=== PATIENT | female | born 1960 | race Caucasian/White ===

== ENCOUNTER 2021-04-15 08:20 | Inpatient (IN) ==
[2021-04-15] MEDS ORDERED: Ipratropium/Albuterol Neb 3 ML IH ONE (09:06)
[2021-04-15] MEDS ORDERED: 0.9 % Sodium Chloride 1,000 ML IVC ONE (10:00)
[2021-04-15 10:07] LABS: Hematocrit 29.3 % (35.3-44.9); Hemoglobin 9.3 g/dL (11.5-15.4); Mean Corpuscular HGB Conc 31.7 g/dL (31.6-35.5); Mean Corpuscular Volume 97.7 fL (83.0-100.0); Mean Platelet Volume 10.8 fL (9.4-12.4); Platelet Count 231 K/mcL (140-400); White Blood Count 11.2 K/mcL (4.3-11.1)
[2021-04-15 10:15] LABS: Influenza A PCR Negative (Negative); Influenza B PCR Negative (Negative); Resp. Syncytial Virus PCR Negative (Negative)
[2021-04-15 10:27] LABS: BUN/Creatinine Ratio 25 (6-26); Blood Urea Nitrogen 13 mg/dL (8-23); Carbon Dioxide 35 mEq/L (23-29); Chloride 99 mEq/L (98-107); Glucose 164 mg/dL (70-105); Osmolality,Calculated 294 (280-300); Potassium 4.2 mEq/L (3.5-5.1); Sodium 140 mEq/L (136-145); eGFR For African Americans > 60 (> 60); eGFR For Non-African Americans > 60 (> 60)
[2021-04-15 10:28] LABS: Troponin I < 0.03 ng/mL (< 0.04)
[2021-04-15] MEDS ORDERED: cefTRIAXone 1,000 MG in Water for inj. (sterile) 10 ML IVP ONE (10:47)
[2021-04-15] MEDS ORDERED: Azithromycin 500 MG in 0.9 % Sodium Chloride 250 ML IVPB ONE (10:47)
[2021-04-15 10:55] LABS: Lymphocytes # 2.2 K/mcL (0.6-4.6); Monocytes # 1.5 K/mcL (0.0-1.3); Neutrophils # 7.5 K/mcL (1.6-8.9); Platelet Estimate Normal (Normal)
[2021-04-15] MEDS ORDERED: Naloxone 0.4 MG/ML INJ IVP PRN (11:03)
[2021-04-15] MEDS ORDERED: Ondansetron 4 MG/2 ML VIAL IVP PRN (11:03)
[2021-04-15] MEDS ORDERED: *HR* Metoprolol 5 MG/5 ML VIAL IVP PRN (11:05)
[2021-04-15 11:06] LABS: SARS-CoV-2 by PCR (In House) Negative (Negative)
[2021-04-15] MEDS ORDERED: D5% in Water 1,000 ML IVC PRN (13:24)
[2021-04-15] MEDS ORDERED: *HR* Dextrose 50 % in Water (Syg) 50 ML SYRINGE IVP PRN (13:24)
[2021-04-15] MEDS ORDERED: Dextrose Gel 15 GM/37.5 ML TUBE PO PRN ×2 (13:24)
[2021-04-15 17:07] LABS: Estimated Average Glucose 192 mg/dl; Hemoglobin A1C 8.3 %
[2021-04-15] MEDS: Insulin LISPRO 300 UNITS/3 ML VIAL SUBQ SCH (18:29)
[2021-04-15] MEDS: predniSONE 20 MG TABLET PO SCH (18:29)
[2021-04-15] MEDS: Levalbuterol Neb 1.25 MG/3 ML IH SCH ×2 (19:52→20:24)
[2021-04-15] MEDS: Ipratropium Neb 0.5 MG NEBULIZER IH SCH ×2 (19:52→20:24)
[2021-04-16 01:55] LABS: Basophils # 0.1 K/mcL (0.0-0.2); Basophils % 0.6 %; Eosinophils % 0.2 %; Hematocrit 30.1 % (35.3-44.9); Hemoglobin 9.3 g/dL (11.5-15.4); Immature Granulocytes % 3.9 % (0-4); Lymphocytes # 1.5 K/mcL (0.6-4.6); Lymphocytes % 13.8 %; Mean Corpuscular HGB Conc 30.9 g/dL (31.6-35.5); Mean Corpuscular Hemoglobin 30.7 pg (28.0-33.3); Mean Corpuscular Volume 99.3 fL (83.0-100.0); Mean Platelet Volume 10.9 fL (9.4-12.4); Monocytes # 1.1 K/mcL (0.0-1.3); Monocytes % 9.8 %; Neutrophils # 7.8 K/mcL (1.6-8.9); Nucleated Red Blood Cells 0.2 /100 WBC (0); Platelet Count 248 K/mcL (140-400); Red Blood Count 3.03 M/mcL (3.82-4.97); Segmented Neutrophils % 71.7 %; White Blood Count 10.9 K/mcL (4.3-11.1)
[2021-04-16 02:15] LABS: BUN/Creatinine Ratio 22 (6-26); Blood Urea Nitrogen 14 mg/dL (8-23); Calcium 9.1 mg/dL (8.6-10.3); Carbon Dioxide 28 mEq/L (23-29); Chloride 96 mEq/L (98-107); Glucose 284 mg/dL (70-105); Osmolality,Calculated 291 (280-300); Potassium 4.4 mEq/L (3.5-5.1); Sodium 135 mEq/L (136-145); eGFR For African Americans > 60 (> 60); eGFR For Non-African Americans > 60 (> 60)
[2021-04-16] MEDS: Ipratropium Neb 0.5 MG NEBULIZER IH SCH ×4 (03:46→20:17)
[2021-04-16] MEDS: Levalbuterol Neb 1.25 MG/3 ML IH SCH ×4 (03:46→20:17)
[2021-04-16] MEDS ORDERED: Menthol 1 EACH LOZENGE PO PRN (04:58)
[2021-04-16] MEDS: *HR* Enoxaparin 40 MG/0.4 ML SYRINGE SQ SCH (05:27)
[2021-04-16] MEDS ORDERED: cefTRIAXone 1,000 MG in 0.9 % Sodium Chloride Mini Bag 100 ML IVP SCH (09:00)
[2021-04-16] MEDS: predniSONE 20 MG TABLET PO SCH (09:00)
[2021-04-16] MEDS: levoFLOXacin 750 MG/150 ML 750 MG/150 ML BAG IVPB SCH (09:00)
[2021-04-16] MEDS: Insulin LISPRO 300 UNITS/3 ML VIAL SUBQ SCH ×3 (09:04→17:12)
[2021-04-16] MEDS ORDERED: Azithromycin 500 MG in 0.9 % Sodium Chloride 250 ML IVPB SCH (10:00)
[2021-04-16] MEDS ORDERED: Acetaminophen 325 MG TABLET PO PRN (13:25)
[2021-04-16] MEDS ORDERED: Ipratropium/Albuterol Neb 3 ML IH SCH (17:00)
[2021-04-16] MEDS: Insulin DETEMIR 100 UNIT/ML X5UNITS SUBQ SCH (20:03)
[2021-04-16] MEDS: Divalproex (24 HR) 500 MG TABLET PO SCH (20:03)
[2021-04-16] MEDS: cloZAPine 100 MG TABLET PO SCH (20:03)
[2021-04-17] MEDS: Levalbuterol Neb 1.25 MG/3 ML IH SCH ×4 (03:45→20:04)
[2021-04-17] MEDS: Ipratropium Neb 0.5 MG NEBULIZER IH SCH ×4 (03:45→20:04)
[2021-04-17] MEDS: *HR* Enoxaparin 40 MG/0.4 ML SYRINGE SQ SCH (06:28)
[2021-04-17 06:46] LABS: Hematocrit 29.7 % (35.3-44.9); Hemoglobin 9.2 g/dL (11.5-15.4); Mean Corpuscular Hemoglobin 30.6 pg (28.0-33.3); Mean Corpuscular Volume 98.7 fL (83.0-100.0); Mean Platelet Volume 10.7 fL (9.4-12.4); Platelet Count 249 K/mcL (140-400); Red Blood Count 3.01 M/mcL (3.82-4.97); Red Cell Distribution Width 12.8 % (11.5-14.5); White Blood Count 12.1 K/mcL (4.3-11.1)
[2021-04-17 07:12] LABS: BUN/Creatinine Ratio 19 (6-26); Blood Urea Nitrogen 13 mg/dL (8-23); Calcium 9.3 mg/dL (8.6-10.3); Carbon Dioxide 32 mEq/L (23-29); Chloride 96 mEq/L (98-107); Glucose 209 mg/dL (70-105); Magnesium 1.9 mg/dL (1.6-2.6); Osmolality,Calculated 286 (280-300); Phosphorous 2.7 mg/dL (2.7-4.5); Potassium 4.4 mEq/L (3.5-5.1); Sodium 135 mEq/L (136-145); eGFR For African Americans > 60 (> 60); eGFR For Non-African Americans > 60 (> 60)
[2021-04-17 08:15] LABS: Anisocytosis 1+ (Not Present); Lymphocytes # 3.9 K/mcL (0.6-4.6); Monocytes # 1.9 K/mcL (0.0-1.3); Neutrophils # 6.3 K/mcL (1.6-8.9); Platelet Estimate Normal (Normal)
[2021-04-17] MEDS: Insulin LISPRO 300 UNITS/3 ML VIAL SUBQ SCH ×3 (08:33→17:14)
[2021-04-17] MEDS: Insulin DETEMIR 100 UNIT/ML X5UNITS SUBQ SCH ×2 (08:33→22:31)
[2021-04-17] MEDS: Loratadine 10 MG TABLET PO SCH (08:37)
[2021-04-17] MEDS: Furosemide 20 MG TABLET PO SCH (08:37)
[2021-04-17] MEDS: predniSONE 20 MG TABLET PO SCH (08:37)
[2021-04-17] MEDS: Cholecalciferol (D-3) 1,000 UNIT (25MCG) TABLET PO SCH (08:37)
[2021-04-17] MEDS: Aspirin Enteric Coated 81 MG Tablet PO SCH (08:37)
[2021-04-17] MEDS: levoFLOXacin 750 MG/150 ML 750 MG/150 ML BAG IVPB SCH (08:37)
[2021-04-17] MEDS: Divalproex (24 HR) 500 MG TABLET PO SCH (22:31)
[2021-04-17] MEDS: cloZAPine 100 MG TABLET PO SCH (22:31)
[2021-04-18] MEDS: Levalbuterol Neb 1.25 MG/3 ML IH SCH ×4 (03:51→20:32)
[2021-04-18] MEDS: Ipratropium Neb 0.5 MG NEBULIZER IH SCH ×4 (03:51→20:32)
[2021-04-18] MEDS: *HR* Enoxaparin 40 MG/0.4 ML SYRINGE SQ SCH (05:39)
[2021-04-18] MEDS ORDERED: Furosemide 40 MG/4 ML VIAL IVP STA (07:50)
[2021-04-18 08:17] LABS: ABG Base Excess 9 mEq/L (-2 to 3); ABG HCO3 37 mEq/L (21-27); ABG Oxygen Saturation 90 % (95-98); ABG PCO2 69 mmHg (35-45); ABG PH 7.34 pH Units (7.32-7.45); ABG PO2 65 mmHg (85-104); ABG TCO2 39 mEq/L (20-26)
[2021-04-18] MEDS ORDERED: Isovue-370 500 ML BOTTLE IVP ONE (08:21)
[2021-04-18] MEDS: Aspirin Enteric Coated 81 MG Tablet PO SCH (09:09)
[2021-04-18] MEDS: predniSONE 20 MG TABLET PO SCH (09:09)
[2021-04-18] MEDS: Loratadine 10 MG TABLET PO SCH (09:09)
[2021-04-18] MEDS: Cholecalciferol (D-3) 1,000 UNIT (25MCG) TABLET PO SCH (09:09)
[2021-04-18] MEDS: Furosemide 20 MG TABLET PO SCH (09:10)
[2021-04-18] MEDS: Insulin DETEMIR 100 UNIT/ML X5UNITS SUBQ SCH ×2 (09:11→19:54)
[2021-04-18] MEDS: levoFLOXacin 750 MG/150 ML 750 MG/150 ML BAG IVPB SCH (09:13)
[2021-04-18] MEDS: Insulin LISPRO 300 UNITS/3 ML VIAL SUBQ SCH ×3 (09:17→16:49)
[2021-04-18] MEDS: Furosemide 20 MG/2 ML VIAL IVP SCH ×2 (09:32→19:52)
[2021-04-18] MEDS: MethylPREDNISolone 40 MG/ML VIAL IVP SCH (11:54)
[2021-04-18] MEDS: Divalproex (24 HR) 500 MG TABLET PO SCH (19:53)
[2021-04-18] MEDS: cloZAPine 100 MG TABLET PO SCH (19:53)
[2021-04-19 01:52] LABS: Hematocrit 30.7 % (35.3-44.9); Hemoglobin 9.7 g/dL (11.5-15.4); Mean Corpuscular HGB Conc 31.6 g/dL (31.6-35.5); Mean Corpuscular Hemoglobin 31.3 pg (28.0-33.3); Mean Platelet Volume 10.7 fL (9.4-12.4); Platelet Count 291 K/mcL (140-400); Red Cell Distribution Width 12.6 % (11.5-14.5); White Blood Count 15.7 K/mcL (4.3-11.1)
[2021-04-19 02:07] LABS: BUN/Creatinine Ratio 23 (6-26); Blood Urea Nitrogen 18 mg/dL (8-23); Calcium 9.4 mg/dL (8.6-10.3); Carbon Dioxide 37 mEq/L (23-29); Chloride 92 mEq/L (98-107); Glucose 326 mg/dL (70-105); Magnesium 1.9 mg/dL (1.6-2.6); Osmolality,Calculated 299 (280-300); Phosphorous 4.3 mg/dL (2.7-4.5); Potassium 4.2 mEq/L (3.5-5.1); Sodium 137 mEq/L (136-145); eGFR For African Americans > 60 (> 60); eGFR For Non-African Americans > 60 (> 60)
[2021-04-19 02:31] LABS: Anisocytosis 1+ (Not Present); Lymphocytes # 3.1 K/mcL (0.6-4.6); Monocytes # 1.6 K/mcL (0.0-1.3); Neutrophils # 10.7 K/mcL (1.6-8.9); Platelet Estimate Normal (Normal)
[2021-04-19] MEDS: Levalbuterol Neb 1.25 MG/3 ML IH SCH ×2 (04:02→07:57)
[2021-04-19] MEDS: Ipratropium Neb 0.5 MG NEBULIZER IH SCH ×2 (04:02→07:57)
[2021-04-19] MEDS: *HR* Enoxaparin 40 MG/0.4 ML SYRINGE SQ SCH (05:16)
[2021-04-19] MEDS: Cholecalciferol (D-3) 1,000 UNIT (25MCG) TABLET PO SCH (09:58)
[2021-04-19] MEDS: Furosemide 20 MG/2 ML VIAL IVP SCH ×2 (09:59→21:02)
[2021-04-19] MEDS: levoFLOXacin 750 MG/150 ML 750 MG/150 ML BAG IVPB SCH (09:59)
[2021-04-19] MEDS: Aspirin Enteric Coated 81 MG Tablet PO SCH (09:59)
[2021-04-19] MEDS: Loratadine 10 MG TABLET PO SCH (09:59)
[2021-04-19] MEDS: MethylPREDNISolone 40 MG/ML VIAL IVP SCH ×3 (10:00→21:03)
[2021-04-19] MEDS: Insulin DETEMIR 100 UNIT/ML X5UNITS SUBQ SCH ×2 (10:37→21:03)
[2021-04-19] MEDS: Insulin LISPRO 300 UNITS/3 ML VIAL SUBQ SCH ×4 (10:37→21:06)
[2021-04-19] MEDS: Acetylcysteine 10% 2 ML INHSOL IH SCH ×2 (11:19→20:06)
[2021-04-19] MEDS: Ipratropium/Albuterol Neb 3 ML IH SCH ×4 (11:19→23:52)
[2021-04-19] MEDS: Divalproex (24 HR) 500 MG TABLET PO SCH (21:04)
[2021-04-19] MEDS: cloZAPine 100 MG TABLET PO SCH (21:04)
[2021-04-20 03:39] LABS: Hematocrit 29.1 % (35.3-44.9); Hemoglobin 9.5 g/dL (11.5-15.4); Mean Corpuscular HGB Conc 32.6 g/dL (31.6-35.5); Mean Corpuscular Hemoglobin 31.8 pg (28.0-33.3); Mean Corpuscular Volume 97.3 fL (83.0-100.0); Mean Platelet Volume 10.8 fL (9.4-12.4); Platelet Count 259 K/mcL (140-400); Red Blood Count 2.99 M/mcL (3.82-4.97); Red Cell Distribution Width 12.5 % (11.5-14.5); White Blood Count 16.9 K/mcL (4.3-11.1)
[2021-04-20] MEDS: Ipratropium/Albuterol Neb 3 ML IH SCH ×6 (03:49→23:36)
[2021-04-20 03:57] LABS: BUN/Creatinine Ratio 26 (6-26); Blood Urea Nitrogen 20 mg/dL (8-23); Carbon Dioxide 38 mEq/L (23-29); Chloride 89 mEq/L (98-107); Glucose 379 mg/dL (70-105); Magnesium 1.8 mg/dL (1.6-2.6); Osmolality,Calculated 288 (280-300); Potassium 4.2 mEq/L (3.5-5.1); Sodium 130 mEq/L (136-145); eGFR For African Americans > 60 (> 60); eGFR For Non-African Americans > 60 (> 60)
[2021-04-20 04:28] LABS: Lymphocytes # 2.7 K/mcL (0.6-4.6); Neutrophils # 12.8 K/mcL (1.6-8.9); Platelet Estimate Normal (Normal)
[2021-04-20 04:29] LABS: Anisocytosis 1+ (Not Present)
[2021-04-20] MEDS: MethylPREDNISolone 40 MG/ML VIAL IVP SCH ×3 (05:11→22:10)
[2021-04-20] MEDS: *HR* Enoxaparin 40 MG/0.4 ML SYRINGE SQ SCH (05:12)
[2021-04-20] MEDS: Acetylcysteine 10% 2 ML INHSOL IH SCH ×3 (07:28→19:51)
[2021-04-20] MEDS: levoFLOXacin 750 MG/150 ML 750 MG/150 ML BAG IVPB SCH (09:13)
[2021-04-20] MEDS: Furosemide 20 MG/2 ML VIAL IVP SCH ×2 (09:14→22:07)
[2021-04-20] MEDS: Loratadine 10 MG TABLET PO SCH (09:14)
[2021-04-20] MEDS: Insulin DETEMIR 100 UNIT/ML X5UNITS SUBQ SCH ×3 (09:14→22:12)
[2021-04-20] MEDS: Insulin LISPRO 300 UNITS/3 ML VIAL SUBQ SCH ×4 (09:14→22:12)
[2021-04-20] MEDS: Cholecalciferol (D-3) 1,000 UNIT (25MCG) TABLET PO SCH (09:14)
[2021-04-20] MEDS: Aspirin Enteric Coated 81 MG Tablet PO SCH (09:14)
[2021-04-20] MEDS: Budesonide/Formoterol 160/4.5 1 PUFF INH IH SCH ×2 (10:54→19:51)
[2021-04-20] MEDS ORDERED: Insulin Human Regular 10 UNIT in 0.9 % Sodium Chloride 10 ML IV ONE (15:25)
[2021-04-20] MEDS: Divalproex (24 HR) 500 MG TABLET PO SCH (22:04)
[2021-04-20] MEDS: cloZAPine 100 MG TABLET PO SCH (22:05)
[2021-04-21] MEDS: Ipratropium/Albuterol Neb 3 ML IH SCH ×6 (03:35→23:32)
[2021-04-21] MEDS: MethylPREDNISolone 40 MG/ML VIAL IVP SCH ×3 (06:28→21:26)
[2021-04-21] MEDS: *HR* Enoxaparin 40 MG/0.4 ML SYRINGE SQ SCH (06:28)
[2021-04-21 06:46] LABS: Hematocrit 33.5 % (35.3-44.9); Hemoglobin 10.4 g/dL (11.5-15.4); Mean Corpuscular Volume 96.5 fL (83.0-100.0); Mean Platelet Volume 10.8 fL (9.4-12.4); Platelet Count 270 K/mcL (140-400); Red Blood Count 3.47 M/mcL (3.82-4.97); Red Cell Distribution Width 12.5 % (11.5-14.5); White Blood Count 17.3 K/mcL (4.3-11.1)
[2021-04-21 07:05] LABS: BUN/Creatinine Ratio 30 (6-26); Blood Urea Nitrogen 26 mg/dL (8-23); Calcium 9.3 mg/dL (8.6-10.3); Carbon Dioxide 39 mEq/L (23-29); Chloride 89 mEq/L (98-107); Glucose 337 mg/dL (70-105); Osmolality,Calculated 296 (280-300); Phosphorous 4.2 mg/dL (2.7-4.5); Potassium 4.5 mEq/L (3.5-5.1); Sodium 134 mEq/L (136-145); eGFR For African Americans > 60 (> 60); eGFR For Non-African Americans > 60 (> 60)
[2021-04-21] MEDS: Acetylcysteine 10% 2 ML INHSOL IH SCH (07:36)
[2021-04-21] MEDS: Budesonide/Formoterol 160/4.5 1 PUFF INH IH SCH ×2 (07:36→20:09)
[2021-04-21] MEDS: Loratadine 10 MG TABLET PO SCH (08:39)
[2021-04-21] MEDS: levoFLOXacin 750 MG/150 ML 750 MG/150 ML BAG IVPB SCH (08:39)
[2021-04-21] MEDS: Cholecalciferol (D-3) 1,000 UNIT (25MCG) TABLET PO SCH (08:39)
[2021-04-21] MEDS: Aspirin Enteric Coated 81 MG Tablet PO SCH (08:40)
[2021-04-21] MEDS: Insulin LISPRO 300 UNITS/3 ML VIAL SUBQ SCH ×4 (08:40→21:31)
[2021-04-21] MEDS: Insulin DETEMIR 100 UNIT/ML X5UNITS SUBQ SCH ×2 (08:40→21:30)
[2021-04-21] MEDS: Furosemide 20 MG/2 ML VIAL IVP SCH ×2 (08:40→21:26)
[2021-04-21 09:14] LABS: Lymphocytes # 3.1 K/mcL (0.6-4.6); Monocytes # 0.4 K/mcL (0.0-1.3); Neutrophils # 13.8 K/mcL (1.6-8.9)
[2021-04-21 09:17] LABS: Anisocytosis 1+ (Not Present); Platelet Estimate Normal (Normal); Reactive Lymphocytes Present (Not Present)
[2021-04-21] MEDS ORDERED: Insulin DETEMIR 100 UNIT/ML X5UNITS SUBQ ONE (12:30)
[2021-04-21] MEDS ORDERED: Insulin Human Regular 20 UNIT in 0.9 % Sodium Chloride 10 ML IV ONE (12:30)
[2021-04-21] MEDS ORDERED: Insulin Human Regular 10 UNIT in 0.9 % Sodium Chloride 10 ML IV ONE (15:21)
[2021-04-21 15:39] LABS: BUN/Creatinine Ratio 33 (6-26); Blood Urea Nitrogen 30 mg/dL (8-23); Calcium 9.6 mg/dL (8.6-10.3); Carbon Dioxide 35 mEq/L (23-29); Chloride 91 mEq/L (98-107); Glucose 420 mg/dL (70-105); Osmolality,Calculated 294 (280-300); Potassium 3.7 mEq/L (3.5-5.1); Sodium 130 mEq/L (136-145); eGFR For African Americans > 60 (> 60); eGFR For Non-African Americans > 60 (> 60)
[2021-04-21] MEDS: cloZAPine 100 MG TABLET PO SCH (21:22)
[2021-04-21] MEDS: Divalproex (24 HR) 500 MG TABLET PO SCH (21:25)
[2021-04-22 02:08] LABS: Basophils # 0.1 K/mcL (0.0-0.2); Basophils % 0.4 %; Hematocrit 31.4 % (35.3-44.9); Lymphocytes # 2.7 K/mcL (0.6-4.6); Mean Corpuscular HGB Conc 31.8 g/dL (31.6-35.5); Mean Corpuscular Hemoglobin 30.8 pg (28.0-33.3); Mean Corpuscular Volume 96.6 fL (83.0-100.0); Mean Platelet Volume 10.9 fL (9.4-12.4); Monocytes # 1.3 K/mcL (0.0-1.3); Monocytes % 6.9 %; Neutrophils # 13.2 K/mcL (1.6-8.9); Platelet Count 251 K/mcL (140-400); Red Blood Count 3.25 M/mcL (3.82-4.97); Red Cell Distribution Width 12.7 % (11.5-14.5); Segmented Neutrophils % 72.7 %; White Blood Count 18.1 K/mcL (4.3-11.1)
[2021-04-22 02:26] LABS: BUN/Creatinine Ratio 34 (6-26); Blood Urea Nitrogen 28 mg/dL (8-23); Calcium 9.1 mg/dL (8.6-10.3); Carbon Dioxide 35 mEq/L (23-29); Chloride 89 mEq/L (98-107); Glucose 315 mg/dL (70-105); Magnesium 1.9 mg/dL (1.6-2.6); Osmolality,Calculated 286 (280-300); Phosphorous 3.8 mg/dL (2.7-4.5); Sodium 129 mEq/L (136-145); eGFR For African Americans > 60 (> 60); eGFR For Non-African Americans > 60 (> 60)
[2021-04-22] MEDS: Ipratropium/Albuterol Neb 3 ML IH SCH ×6 (04:08→23:57)
[2021-04-22] MEDS: MethylPREDNISolone 40 MG/ML VIAL IVP SCH ×3 (05:30→20:51)
[2021-04-22] MEDS: *HR* Enoxaparin 40 MG/0.4 ML SYRINGE SQ SCH (05:33)
[2021-04-22] MEDS: Budesonide/Formoterol 160/4.5 1 PUFF INH IH SCH ×2 (07:30→20:09)
[2021-04-22] MEDS: levoFLOXacin 750 MG/150 ML 750 MG/150 ML BAG IVPB SCH (08:20)
[2021-04-22] MEDS: Cholecalciferol (D-3) 1,000 UNIT (25MCG) TABLET PO SCH (08:20)
[2021-04-22] MEDS: Aspirin Enteric Coated 81 MG Tablet PO SCH (08:20)
[2021-04-22] MEDS: Loratadine 10 MG TABLET PO SCH (08:20)
[2021-04-22] MEDS: Insulin LISPRO 300 UNITS/3 ML VIAL SUBQ SCH ×5 (08:21→20:53)
[2021-04-22] MEDS: Insulin DETEMIR 100 UNIT/ML X5UNITS SUBQ SCH ×2 (08:21→20:52)
[2021-04-22] MEDS: Furosemide 20 MG/2 ML VIAL IVP SCH ×2 (08:33→20:51)
[2021-04-22] MEDS ORDERED: Metoclopramide 10 MG/2 ML VIAL IVP STA (10:37)
[2021-04-22] MEDS: Divalproex (24 HR) 500 MG TABLET PO SCH (20:51)
[2021-04-22] MEDS: cloZAPine 100 MG TABLET PO SCH (20:52)
[2021-04-23 02:35] LABS: Basophils # 0.1 K/mcL (0.0-0.2); Basophils % 0.3 %; Hematocrit 33.2 % (35.3-44.9); Hemoglobin 10.4 g/dL (11.5-15.4); Immature Granulocytes % 4.4 % (0-4); Lymphocytes # 2.7 K/mcL (0.6-4.6); Lymphocytes % 15.5 %; Mean Corpuscular HGB Conc 31.3 g/dL (31.6-35.5); Mean Corpuscular Hemoglobin 30.3 pg (28.0-33.3); Mean Corpuscular Volume 96.8 fL (83.0-100.0); Monocytes # 1.2 K/mcL (0.0-1.3); Monocytes % 6.8 %; Neutrophils # 12.6 K/mcL (1.6-8.9); Platelet Count 238 K/mcL (140-400); Red Blood Count 3.43 M/mcL (3.82-4.97); Red Cell Distribution Width 12.7 % (11.5-14.5); White Blood Count 17.2 K/mcL (4.3-11.1)
[2021-04-23 03:11] LABS: BUN/Creatinine Ratio 33 (6-26); Blood Urea Nitrogen 25 mg/dL (8-23); Calcium 9.5 mg/dL (8.6-10.3); Carbon Dioxide 40 mEq/L (23-29); Chloride 90 mEq/L (98-107); Glucose 231 mg/dL (70-105); Magnesium 2.1 mg/dL (1.6-2.6); Osmolality,Calculated 290 (280-300); Phosphorous 3.5 mg/dL (2.7-4.5); Potassium 3.9 mEq/L (3.5-5.1); Sodium 134 mEq/L (136-145); eGFR For African Americans > 60 (> 60); eGFR For Non-African Americans > 60 (> 60)
[2021-04-23] MEDS: Ipratropium/Albuterol Neb 3 ML IH SCH ×5 (04:09→20:24)
[2021-04-23] MEDS: *HR* Enoxaparin 40 MG/0.4 ML SYRINGE SQ SCH (05:18)
[2021-04-23] MEDS: MethylPREDNISolone 40 MG/ML VIAL IVP SCH (05:18)
[2021-04-23] MEDS: Budesonide/Formoterol 160/4.5 1 PUFF INH IH SCH ×2 (07:33→20:24)
[2021-04-23] MEDS: Furosemide 20 MG/2 ML VIAL IVP SCH (08:22)
[2021-04-23] MEDS: Aspirin Enteric Coated 81 MG Tablet PO SCH (08:22)
[2021-04-23] MEDS: Cholecalciferol (D-3) 1,000 UNIT (25MCG) TABLET PO SCH (08:22)
[2021-04-23] MEDS: levoFLOXacin 750 MG/150 ML 750 MG/150 ML BAG IVPB SCH (08:22)
[2021-04-23] MEDS: Loratadine 10 MG TABLET PO SCH (08:22)
[2021-04-23] MEDS: Insulin LISPRO 300 UNITS/3 ML VIAL SUBQ SCH ×7 (08:38→21:47)
[2021-04-23] MEDS: Insulin DETEMIR 100 UNIT/ML X5UNITS SUBQ SCH ×2 (08:39→21:45)
[2021-04-23] MEDS: cloZAPine 100 MG TABLET PO SCH (21:45)
[2021-04-23] MEDS: Divalproex (24 HR) 500 MG TABLET PO SCH (21:46)
[2021-04-24] MEDS: Ipratropium/Albuterol Neb 3 ML IH SCH ×4 (00:20→11:26)
[2021-04-24] MEDS: *HR* Enoxaparin 40 MG/0.4 ML SYRINGE SQ SCH (04:32)
[2021-04-24 04:59] LABS: Basophils % 0.2 %; Eosinophils # 0.1 K/mcL (0.0-0.6); Eosinophils % 0.4 %; Hematocrit 30.1 % (35.3-44.9); Hemoglobin 9.8 g/dL (11.5-15.4); Immature Granulocytes % 2.5 % (0-4); Lymphocytes # 4.2 K/mcL (0.6-4.6); Lymphocytes % 30.4 %; Mean Corpuscular HGB Conc 32.6 g/dL (31.6-35.5); Mean Corpuscular Hemoglobin 31.4 pg (28.0-33.3); Mean Corpuscular Volume 96.5 fL (83.0-100.0); Mean Platelet Volume 11.1 fL (9.4-12.4); Monocytes # 1.4 K/mcL (0.0-1.3); Monocytes % 10.2 %; Neutrophils # 7.7 K/mcL (1.6-8.9); Platelet Count 192 K/mcL (140-400); Red Blood Count 3.12 M/mcL (3.82-4.97); Red Cell Distribution Width 12.8 % (11.5-14.5); Segmented Neutrophils % 56.3 %; White Blood Count 13.8 K/mcL (4.3-11.1)
[2021-04-24 05:13] LABS: BUN/Creatinine Ratio 40 (6-26); Blood Urea Nitrogen 28 mg/dL (8-23); Calcium 8.9 mg/dL (8.6-10.3); Carbon Dioxide 38 mEq/L (23-29); Chloride 86 mEq/L (98-107); Glucose 136 mg/dL (70-105); Magnesium 1.9 mg/dL (1.6-2.6); Osmolality,Calculated 276 (280-300); Phosphorous 3.4 mg/dL (2.7-4.5); Potassium 3.3 mEq/L (3.5-5.1); Sodium 129 mEq/L (136-145); eGFR For African Americans > 60 (> 60); eGFR For Non-African Americans > 60 (> 60)
[2021-04-24] MEDS: Budesonide/Formoterol 160/4.5 1 PUFF INH IH SCH (07:27)
[2021-04-24] MEDS: Insulin DETEMIR 100 UNIT/ML X5UNITS SUBQ SCH (08:03)
[2021-04-24] MEDS: Aspirin Enteric Coated 81 MG Tablet PO SCH (08:03)
[2021-04-24] MEDS: Insulin LISPRO 300 UNITS/3 ML VIAL SUBQ SCH ×4 (08:03→12:16)
[2021-04-24] MEDS: Loratadine 10 MG TABLET PO SCH (08:03)
[2021-04-24] MEDS ORDERED: Potassium Chloride Elixir 20 MEQ/15 ML UDC PO ONE (08:03)
[2021-04-24] MEDS: Cholecalciferol (D-3) 1,000 UNIT (25MCG) TABLET PO SCH (08:03)
[2021-04-24] MEDS ORDERED: predniSONE 20 MG TABLET PO SCH (09:00)
[2021-04-24] MEDS ORDERED: Furosemide 20 MG TABLET PO SCH (09:00)
[2021-04-24 14:27] VITALS: BP 138/87; PULSE 87; TEMP 98.1; O2SAT 93
== END 2021-04-24 14:52 | disposition home or self-care (01) | DRG 193 ==
LOC: 2ANU 08:20 → EMEROOARM 08:20 → 2ANU 17:40 → SUATTDRO 04-16 14:51
PROVIDERS: ADMIT Student in an Organized Health Care Education/Training Program; ATTEND Hospitalist

== ENCOUNTER 2021-05-30 23:44 | Inpatient (IN) ==
[2021-05-31 01:06] LABS: Alanine Aminotransferase 12 Units/L (7-52); Albumin 3.5 g/dL (3.5-5.7); Albumin/Globulin Ratio 1.4 (1.1-2.2); Alkaline Phosphatase 60 Units/L (34-104); Aspartate Amino Transferase 24 Units/L (13-39); BUN/Creatinine Ratio 30 (6-26); Bilirubin,Total 0.3 mg/dL (0.3-1.0); Blood Urea Nitrogen 19 mg/dL (8-23); Calcium 9.2 mg/dL (8.6-10.3); Carbon Dioxide 32 mEq/L (23-29); Chloride 99 mEq/L (98-107); Globulin 2.5 g/dL (2.4-3.5); Glucose 184 mg/dL (70-105); Osmolality,Calculated 295 (280-300); Potassium 4.7 mEq/L (3.5-5.1); Sodium 139 mEq/L (136-145); Troponin I < 0.03 ng/mL (< 0.04); eGFR For African Americans > 60 (> 60); eGFR For Non-African Americans > 60 (> 60)
[2021-05-31 01:23] LABS: VBG HCO3 35 mEq/L (21-27); VBG PCO2 68 mmHg (41-51); VBG PH 7.32 pH Units (7.32-7.42); VBG PO2 161 mmHg (25-50)
[2021-05-31 01:41] LABS: Basophils # 0.1 K/mcL (0.0-0.2); Basophils % 0.8 %; Eosinophils # 0.1 K/mcL (0.0-0.6); Eosinophils % 1.2 %; Hematocrit 32.6 % (35.3-44.9); Hemoglobin 9.9 g/dL (11.5-15.4); Lymphocytes # 2.9 K/mcL (0.6-4.6); Lymphocytes % 29.2 %; Mean Corpuscular HGB Conc 30.4 g/dL (31.6-35.5); Mean Corpuscular Hemoglobin 30.9 pg (28.0-33.3); Mean Corpuscular Volume 101.9 fL (83.0-100.0); Mean Platelet Volume 11.6 fL (9.4-12.4); Monocytes # 1.6 K/mcL (0.0-1.3); Monocytes % 16.1 %; Neutrophils # 5.1 K/mcL (1.6-8.9); Platelet Count 244 K/mcL (140-400); Red Cell Distribution Width 14.6 % (11.5-14.5); Segmented Neutrophils % 51.7 %; White Blood Count 9.8 K/mcL (4.3-11.1)
[2021-05-31] MEDS ORDERED: Isovue-370 500 ML BOTTLE IVP ONE (01:59)
[2021-05-31] MEDS ORDERED: Budesonide Neb 0.5 MG/2 ML IH ONE (03:25)
[2021-05-31 04:46] LABS: Influenza A PCR Negative (Negative); Influenza B PCR Negative (Negative); Resp. Syncytial Virus PCR Negative (Negative); SARS-CoV-2 by PCR (In House) Negative (Negative)
[2021-05-31] MEDS ORDERED: methylPREDNISolone 125 MG/2 ML VIAL IVP ONE (05:28)
[2021-05-31] MEDS ORDERED: Naloxone 0.4 MG/ML INJ IVP PRN (05:50)
[2021-05-31] MEDS ORDERED: *HR* Dextrose 50 % in Water (Syg) 50 ML SYRINGE IVP PRN (06:53)
[2021-05-31] MEDS ORDERED: Dextrose Gel 15 GM/37.5 ML TUBE PO PRN ×2 (06:53)
[2021-05-31] MEDS ORDERED: D5% in Water 1,000 ML IVC PRN (06:53)
[2021-05-31] MEDS ORDERED: Perflutren Lipid Microsphere 1.3 ML in 0.9 % Sodium Chloride 8.7 ML IVP PRN (07:19)
[2021-05-31] MEDS ORDERED: Furosemide 20 MG TABLET PO SCH (09:00)
[2021-05-31] MEDS: Insulin LISPRO 300 UNITS/3 ML VIAL SUBQ SCH ×3 (09:05→17:09)
[2021-05-31] MEDS: Furosemide 20 MG/2 ML VIAL IVP SCH ×2 (09:12→19:36)
[2021-05-31] MEDS: Ipratropium/Albuterol Neb 3 ML IH SCH ×3 (10:48→19:56)
[2021-05-31] MEDS: Budesonide/Formoterol 160/4.5 1 PUFF INH IH SCH ×2 (10:48→19:57)
[2021-05-31] MEDS: Divalproex (24 HR) 500 MG TABLET PO SCH (19:35)
[2021-05-31] MEDS: cloZAPine 100 MG TABLET PO SCH (19:36)
[2021-05-31] MEDS: MethylPREDNISolone 40 MG/ML VIAL IVP SCH (19:36)
[2021-05-31] MEDS: Melatonin 3 MG TABLET PO PRN (19:36)
[2021-05-31] MEDS ORDERED: Insulin LISPRO 300 UNITS/3 ML VIAL SUBQ SCH (21:00)
[2021-06-01 02:57] LABS: Basophils % 0.2 %; Hemoglobin 9.6 g/dL (11.5-15.4); Immature Granulocytes % 1.2 % (0-4); Lymphocytes # 1.5 K/mcL (0.6-4.6); Lymphocytes % 12.6 %; Mean Corpuscular Hemoglobin 30.1 pg (28.0-33.3); Mean Corpuscular Volume 100.3 fL (83.0-100.0); Mean Platelet Volume 11.7 fL (9.4-12.4); Monocytes # 0.5 K/mcL (0.0-1.3); Monocytes % 4.5 %; Neutrophils # 9.5 K/mcL (1.6-8.9); Platelet Count 258 K/mcL (140-400); Red Blood Count 3.19 M/mcL (3.82-4.97); Red Cell Distribution Width 14.5 % (11.5-14.5); Segmented Neutrophils % 81.5 %; White Blood Count 11.7 K/mcL (4.3-11.1)
[2021-06-01 03:15] LABS: BUN/Creatinine Ratio 26 (6-26); Blood Urea Nitrogen 17 mg/dL (8-23); Calcium 9.3 mg/dL (8.6-10.3); Carbon Dioxide 36 mEq/L (23-29); Chloride 96 mEq/L (98-107); Glucose 280 mg/dL (70-105); Osmolality,Calculated 298 (280-300); Potassium 4.1 mEq/L (3.5-5.1); Sodium 138 mEq/L (136-145); eGFR For African Americans > 60 (> 60); eGFR For Non-African Americans > 60 (> 60)
[2021-06-01] MEDS: Ipratropium/Albuterol Neb 3 ML IH SCH ×4 (03:58→20:09)
[2021-06-01] MEDS: MethylPREDNISolone 40 MG/ML VIAL IVP SCH ×3 (07:05→21:02)
[2021-06-01] MEDS: Insulin LISPRO 300 UNITS/3 ML VIAL SUBQ SCH ×4 (08:15→21:06)
[2021-06-01] MEDS: Aspirin Enteric Coated 81 MG Tablet PO SCH (08:17)
[2021-06-01] MEDS: Furosemide 40 MG/4 ML VIAL IVP SCH ×2 (08:19→21:02)
[2021-06-01] MEDS: Budesonide/Formoterol 160/4.5 1 PUFF INH IH SCH ×2 (09:53→20:11)
[2021-06-01] MEDS ORDERED: Insulin LISPRO 300 UNITS/3 ML VIAL SUBQ ONE (11:50)
[2021-06-01] MEDS: Insulin DETEMIR 100 UNIT/ML X5UNITS SUBQ SCH ×2 (12:47→21:05)
[2021-06-01 13:12] LABS: Bilirubin,Urine Negative (Negative); Blood,Urine Negative (Negative); Clarity,Urine Clear (Clear); Color,Urine Colorless (Yellow); Glucose,Urine (UA) >=1000 mg/dL (Normal); Ketones,Urine Negative (Negative); Leukocyte Esterase,Urine Negative (Negative); Nitrite,Urine Negative (Negative); PH,Urine 6.5 pH Units (5.0-8.0); Protein,Urine Negative (Neg-Trace); RBC,Urine 0-3 per hpf (0-3); Specific Gravity,Urine 1.013 (1.010-1.025); Urobilinogen,Urine Normal (Normal); WBC,Urine 0-3 per hpf (0-3)
[2021-06-01] MEDS ORDERED: Albuterol 2.5 MG/3 ML NEBULIZER ONE (17:06)
[2021-06-01] MEDS: GuaiFENesin Liq 200 MG/10 ML UDC PO PRN (18:00)
[2021-06-01] MEDS: Divalproex (24 HR) 500 MG TABLET PO SCH (21:01)
[2021-06-01] MEDS: cloZAPine 100 MG TABLET PO SCH (21:02)
[2021-06-02 02:53] LABS: Basophils % 0.1 %; Hematocrit 31.4 % (35.3-44.9); Hemoglobin 9.8 g/dL (11.5-15.4); Immature Granulocytes % 1.2 % (0-4); Lymphocytes % 13.9 %; Mean Corpuscular HGB Conc 31.2 g/dL (31.6-35.5); Mean Corpuscular Hemoglobin 30.6 pg (28.0-33.3); Mean Corpuscular Volume 98.1 fL (83.0-100.0); Mean Platelet Volume 11.5 fL (9.4-12.4); Monocytes # 0.9 K/mcL (0.0-1.3); Neutrophils # 11.5 K/mcL (1.6-8.9); Platelet Count 280 K/mcL (140-400); Red Cell Distribution Width 14.5 % (11.5-14.5); Segmented Neutrophils % 78.8 %; White Blood Count 14.6 K/mcL (4.3-11.1)
[2021-06-02 03:10] LABS: BUN/Creatinine Ratio 25 (6-26); Blood Urea Nitrogen 22 mg/dL (8-23); Carbon Dioxide 37 mEq/L (23-29); Chloride 91 mEq/L (98-107); Glucose 304 mg/dL (70-105); Osmolality,Calculated 295 (280-300); Potassium 3.9 mEq/L (3.5-5.1); Sodium 135 mEq/L (136-145); eGFR For African Americans > 60 (> 60); eGFR For Non-African Americans > 60 (> 60)
[2021-06-02] MEDS: Ipratropium/Albuterol Neb 3 ML IH SCH ×5 (03:57→20:57)
[2021-06-02] MEDS: MethylPREDNISolone 40 MG/ML VIAL IVP SCH ×3 (05:58→20:38)
[2021-06-02] MEDS: Budesonide/Formoterol 160/4.5 1 PUFF INH IH SCH ×3 (09:24→20:58)
[2021-06-02] MEDS: Aspirin Enteric Coated 81 MG Tablet PO SCH (09:39)
[2021-06-02] MEDS: Furosemide 40 MG/4 ML VIAL IVP SCH ×2 (09:39→20:38)
[2021-06-02] MEDS: Insulin DETEMIR 100 UNIT/ML X5UNITS SUBQ SCH ×2 (09:39→20:40)
[2021-06-02] MEDS: Insulin LISPRO 300 UNITS/3 ML VIAL SUBQ SCH ×4 (09:39→20:41)
[2021-06-02] MEDS: Azithromycin 500 MG in 0.9 % Sodium Chloride 250 ML IVPB SCH (13:54)
[2021-06-02] MEDS: cefTRIAXone 1,000 MG in 0.9 % Sodium Chloride 10 ML IVP SCH (13:55)
[2021-06-02] MEDS: Divalproex (24 HR) 500 MG TABLET PO SCH (20:38)
[2021-06-02] MEDS: cloZAPine 100 MG TABLET PO SCH (20:38)
[2021-06-03 01:44] LABS: Basophils % 0.2 %; Hematocrit 31.3 % (35.3-44.9); Hemoglobin 9.8 g/dL (11.5-15.4); Immature Granulocytes % 1.2 % (0-4); Lymphocytes % 12.2 %; Mean Corpuscular HGB Conc 31.3 g/dL (31.6-35.5); Mean Corpuscular Hemoglobin 30.6 pg (28.0-33.3); Mean Corpuscular Volume 97.8 fL (83.0-100.0); Mean Platelet Volume 11.7 fL (9.4-12.4); Monocytes # 1.6 K/mcL (0.0-1.3); Monocytes % 10.1 %; Neutrophils # 12.2 K/mcL (1.6-8.9); Platelet Count 281 K/mcL (140-400); Red Cell Distribution Width 14.5 % (11.5-14.5); Segmented Neutrophils % 76.3 %
[2021-06-03 02:09] LABS: BUN/Creatinine Ratio 40 (6-26); Blood Urea Nitrogen 34 mg/dL (8-23); Carbon Dioxide 32 mEq/L (23-29); Chloride 89 mEq/L (98-107); Glucose 280 mg/dL (70-105); Osmolality,Calculated 294 (280-300); Potassium 3.6 mEq/L (3.5-5.1); Sodium 133 mEq/L (136-145); eGFR For African Americans > 60 (> 60); eGFR For Non-African Americans > 60 (> 60)
[2021-06-03] MEDS: Ipratropium/Albuterol Neb 3 ML IH SCH ×4 (04:26→19:56)
[2021-06-03] MEDS: Budesonide/Formoterol 160/4.5 1 PUFF INH IH SCH ×2 (07:36→19:57)
[2021-06-03] MEDS: Loratadine 10 MG TABLET PO SCH (09:03)
[2021-06-03] MEDS: Cholecalciferol (D-3) 1,000 UNIT (25MCG) TABLET PO SCH (09:03)
[2021-06-03] MEDS: Aspirin Enteric Coated 81 MG Tablet PO SCH (09:03)
[2021-06-03] MEDS: Furosemide 40 MG/4 ML VIAL IVP SCH ×2 (09:03→20:50)
[2021-06-03] MEDS: MethylPREDNISolone 40 MG/ML VIAL IVP SCH ×2 (09:03→19:49)
[2021-06-03] MEDS: Insulin LISPRO 300 UNITS/3 ML VIAL SUBQ SCH ×4 (09:04→20:52)
[2021-06-03] MEDS: Insulin DETEMIR 100 UNIT/ML X5UNITS SUBQ SCH ×2 (09:15→20:51)
[2021-06-03] MEDS: Azithromycin 500 MG in 0.9 % Sodium Chloride 250 ML IVPB SCH (13:30)
[2021-06-03] MEDS: cefTRIAXone 1,000 MG in 0.9 % Sodium Chloride 10 ML IVP SCH (13:30)
[2021-06-03 15:04] LABS: ABG Base Excess 11 mEq/L (-2 to 3); ABG HCO3 38 mEq/L (21-27); ABG Oxygen Saturation 89 % (95-98); ABG PCO2 57 mmHg (35-45); ABG PH 7.43 pH Units (7.32-7.45); ABG PO2 56 mmHg (85-104); ABG TCO2 39 mEq/L (20-26)
[2021-06-03] MEDS: GuaiFENesin Liq 200 MG/10 ML UDC PO PRN (19:49)
[2021-06-03] MEDS: Divalproex (24 HR) 500 MG TABLET PO SCH (20:51)
[2021-06-03] MEDS: cloZAPine 100 MG TABLET PO SCH (20:51)
[2021-06-04] MEDS: Ipratropium/Albuterol Neb 3 ML IH SCH ×4 (03:57→19:53)
[2021-06-04 06:09] LABS: BUN/Creatinine Ratio 49 (6-26); Blood Urea Nitrogen 34 mg/dL (8-23); Calcium 9.1 mg/dL (8.6-10.3); Carbon Dioxide 37 mEq/L (23-29); Chloride 90 mEq/L (98-107); Glucose 241 mg/dL (70-105); Osmolality,Calculated 300 (280-300); Potassium 4.1 mEq/L (3.5-5.1); Sodium 137 mEq/L (136-145); eGFR For African Americans > 60 (> 60); eGFR For Non-African Americans > 60 (> 60)
[2021-06-04 07:12] LABS: Basophils % 0.1 %; Hematocrit 33.1 % (35.3-44.9); Hemoglobin 10.1 g/dL (11.5-15.4); Immature Granulocytes % 1.2 % (0-4); Lymphocytes # 2.4 K/mcL (0.6-4.6); Lymphocytes % 17.8 %; Mean Corpuscular HGB Conc 30.5 g/dL (31.6-35.5); Mean Corpuscular Hemoglobin 30.3 pg (28.0-33.3); Mean Corpuscular Volume 99.4 fL (83.0-100.0); Mean Platelet Volume 11.5 fL (9.4-12.4); Monocytes # 1.2 K/mcL (0.0-1.3); Monocytes % 8.7 %; Neutrophils # 9.8 K/mcL (1.6-8.9); Platelet Count 245 K/mcL (140-400); Red Blood Count 3.33 M/mcL (3.82-4.97); Red Cell Distribution Width 14.2 % (11.5-14.5); Segmented Neutrophils % 72.2 %; White Blood Count 13.5 K/mcL (4.3-11.1)
[2021-06-04] MEDS: MethylPREDNISolone 40 MG/ML VIAL IVP SCH ×2 (07:59→19:50)
[2021-06-04] MEDS: Insulin LISPRO 300 UNITS/3 ML VIAL SUBQ SCH ×4 (08:01→20:42)
[2021-06-04] MEDS: Cholecalciferol (D-3) 1,000 UNIT (25MCG) TABLET PO SCH (10:20)
[2021-06-04] MEDS: Furosemide 40 MG/4 ML VIAL IVP SCH ×2 (10:21→19:55)
[2021-06-04] MEDS: Loratadine 10 MG TABLET PO SCH (10:21)
[2021-06-04] MEDS: Insulin DETEMIR 100 UNIT/ML X5UNITS SUBQ SCH ×2 (10:22→20:43)
[2021-06-04] MEDS: Aspirin Enteric Coated 81 MG Tablet PO SCH (10:23)
[2021-06-04] MEDS: Budesonide/Formoterol 160/4.5 1 PUFF INH IH SCH ×2 (11:16→19:53)
[2021-06-04] MEDS: cefTRIAXone 1,000 MG in 0.9 % Sodium Chloride 10 ML IVP SCH (12:48)
[2021-06-04] MEDS: Azithromycin 500 MG in 0.9 % Sodium Chloride 250 ML IVPB SCH (12:49)
[2021-06-04] MEDS ORDERED: Furosemide 20 MG/2 ML VIAL IVP ONE (14:00)
[2021-06-04] MEDS: cloZAPine 100 MG TABLET PO SCH (19:54)
[2021-06-04] MEDS: Melatonin 3 MG TABLET PO PRN (19:54)
[2021-06-04] MEDS: Divalproex (24 HR) 500 MG TABLET PO SCH (19:54)
[2021-06-05 02:39] LABS: BUN/Creatinine Ratio 48 (6-26); Basophils % 0.3 %; Blood Urea Nitrogen 34 mg/dL (8-23); Calcium 8.9 mg/dL (8.6-10.3); Carbon Dioxide 36 mEq/L (23-29); Chloride 91 mEq/L (98-107); Glucose 230 mg/dL (70-105); Hemoglobin 10.1 g/dL (11.5-15.4); Immature Granulocytes % 1.2 % (0-4); Lymphocytes # 1.9 K/mcL (0.6-4.6); Lymphocytes % 16.3 %; Mean Corpuscular HGB Conc 30.6 g/dL (31.6-35.5); Mean Corpuscular Hemoglobin 30.4 pg (28.0-33.3); Mean Corpuscular Volume 99.4 fL (83.0-100.0); Mean Platelet Volume 12.6 fL (9.4-12.4); Monocytes # 1.2 K/mcL (0.0-1.3); Monocytes % 9.6 %; Neutrophils # 8.7 K/mcL (1.6-8.9); Osmolality,Calculated 295 (280-300); Platelet Count 153 K/mcL (140-400); Potassium 4.2 mEq/L (3.5-5.1); Red Blood Count 3.32 M/mcL (3.82-4.97); Red Cell Distribution Width 14.2 % (11.5-14.5); Segmented Neutrophils % 72.6 %; Sodium 135 mEq/L (136-145); White Blood Count 11.9 K/mcL (4.3-11.1); eGFR For African Americans > 60 (> 60); eGFR For Non-African Americans > 60 (> 60)
[2021-06-05] MEDS: Ipratropium/Albuterol Neb 3 ML IH SCH ×4 (04:02→20:19)
[2021-06-05] MEDS ORDERED: Isovue-370 500 ML BOTTLE IVP ONE (07:37)
[2021-06-05] MEDS: Cholecalciferol (D-3) 1,000 UNIT (25MCG) TABLET PO SCH (08:54)
[2021-06-05] MEDS: Loratadine 10 MG TABLET PO SCH (08:54)
[2021-06-05] MEDS: Aspirin Enteric Coated 81 MG Tablet PO SCH (08:54)
[2021-06-05] MEDS: Insulin LISPRO 300 UNITS/3 ML VIAL SUBQ SCH ×4 (08:54→20:56)
[2021-06-05] MEDS: Furosemide 40 MG/4 ML VIAL IVP SCH ×2 (08:55→20:58)
[2021-06-05] MEDS: MethylPREDNISolone 40 MG/ML VIAL IVP SCH ×2 (08:55→20:58)
[2021-06-05] MEDS: Budesonide/Formoterol 160/4.5 1 PUFF INH IH SCH ×2 (09:25→20:19)
[2021-06-05] MEDS: Insulin DETEMIR 100 UNIT/ML X5UNITS SUBQ SCH ×2 (10:13→20:57)
[2021-06-05] MEDS: Azithromycin 500 MG in 0.9 % Sodium Chloride 250 ML IVPB SCH (11:29)
[2021-06-05] MEDS: cefTRIAXone 1,000 MG in 0.9 % Sodium Chloride 10 ML IVP SCH (11:29)
[2021-06-05] MEDS: cloZAPine 100 MG TABLET PO SCH (20:57)
[2021-06-05] MEDS: Divalproex (24 HR) 500 MG TABLET PO SCH (20:57)
[2021-06-05] MEDS: Melatonin 3 MG TABLET PO PRN (20:57)
[2021-06-06] MEDS: Ipratropium/Albuterol Neb 3 ML IH SCH ×4 (04:28→20:23)
[2021-06-06 05:49] LABS: Basophils % 0.2 %; Hematocrit 32.2 % (35.3-44.9); Hemoglobin 10.4 g/dL (11.5-15.4); Lymphocytes # 1.8 K/mcL (0.6-4.6); Lymphocytes % 14.2 %; Mean Corpuscular HGB Conc 32.3 g/dL (31.6-35.5); Mean Corpuscular Hemoglobin 31.5 pg (28.0-33.3); Mean Corpuscular Volume 97.6 fL (83.0-100.0); Mean Platelet Volume 11.9 fL (9.4-12.4); Monocytes # 0.8 K/mcL (0.0-1.3); Monocytes % 6.6 %; Neutrophils # 9.7 K/mcL (1.6-8.9); Platelet Count 211 K/mcL (140-400); White Blood Count 12.4 K/mcL (4.3-11.1)
[2021-06-06 05:59] LABS: Prothrombin Time 10.7 Seconds (9.4-12.1)
[2021-06-06 06:16] LABS: BUN/Creatinine Ratio 46 (6-26); Blood Urea Nitrogen 35 mg/dL (8-23); Calcium 8.7 mg/dL (8.6-10.3); Carbon Dioxide 38 mEq/L (23-29); Chloride 92 mEq/L (98-107); Glucose 296 mg/dL (70-105); Osmolality,Calculated 303 (280-300); Potassium 4.3 mEq/L (3.5-5.1); Sodium 137 mEq/L (136-145); eGFR For African Americans > 60 (> 60); eGFR For Non-African Americans > 60 (> 60)
[2021-06-06] MEDS: Budesonide/Formoterol 160/4.5 1 PUFF INH IH SCH ×2 (07:46→20:23)
[2021-06-06] MEDS: Loratadine 10 MG TABLET PO SCH (08:15)
[2021-06-06] MEDS: Cholecalciferol (D-3) 1,000 UNIT (25MCG) TABLET PO SCH (08:15)
[2021-06-06] MEDS: Aspirin Enteric Coated 81 MG Tablet PO SCH (08:15)
[2021-06-06] MEDS: Furosemide 40 MG/4 ML VIAL IVP SCH ×2 (08:16→21:47)
[2021-06-06] MEDS: MethylPREDNISolone 40 MG/ML VIAL IVP SCH ×2 (08:16→21:48)
[2021-06-06] MEDS: Insulin LISPRO 300 UNITS/3 ML VIAL SUBQ SCH ×4 (08:16→21:49)
[2021-06-06] MEDS: Insulin DETEMIR 100 UNIT/ML X5UNITS SUBQ SCH ×2 (08:18→22:02)
[2021-06-06] MEDS ORDERED: *HR* Propofol 200 MG/20 ML VIAL IVP ONE (09:42)
[2021-06-06] MEDS: cefTRIAXone 1,000 MG in 0.9 % Sodium Chloride 10 ML IVP SCH (12:42)
[2021-06-06] MEDS: Azithromycin 500 MG in 0.9 % Sodium Chloride 250 ML IVPB SCH (12:43)
[2021-06-06 13:31] LABS: Source of Body Fluid RLL BAL
[2021-06-06 15:01] LABS: Appearance of Body Fluid Cloudy (Clear); Volume of Body Fluid 16 mL
[2021-06-06] MEDS ORDERED: Acetaminophen 325 MG TABLET PO PRN (15:32)
[2021-06-06] MEDS: Acetylcysteine 10% 2 ML INHSOL IH SCH ×2 (15:50→20:23)
[2021-06-06] MEDS: Divalproex (24 HR) 500 MG TABLET PO SCH (21:47)
[2021-06-06] MEDS: cloZAPine 100 MG TABLET PO SCH (21:48)
[2021-06-06] MEDS: Melatonin 3 MG TABLET PO PRN (22:03)
[2021-06-06] MEDS: GuaiFENesin Liq 200 MG/10 ML UDC PO PRN (23:19)
[2021-06-07] MEDS: Ipratropium/Albuterol Neb 3 ML IH SCH ×4 (03:50→19:54)
[2021-06-07] MEDS: Acetylcysteine 10% 2 ML INHSOL IH SCH ×4 (03:50→19:54)
[2021-06-07] MEDS: Budesonide/Formoterol 160/4.5 1 PUFF INH IH SCH ×2 (07:54→19:54)
[2021-06-07] MEDS: Insulin LISPRO 300 UNITS/3 ML VIAL SUBQ SCH ×4 (08:25→21:07)
[2021-06-07 08:54] LABS: Basophils % 0.2 %; Eosinophils % 0.1 %; Hematocrit 34.7 % (35.3-44.9); Hemoglobin 11.1 g/dL (11.5-15.4); Lymphocytes # 2.6 K/mcL (0.6-4.6); Lymphocytes % 20.3 %; Mean Corpuscular Hemoglobin 31.3 pg (28.0-33.3); Mean Corpuscular Volume 97.7 fL (83.0-100.0); Mean Platelet Volume 12.1 fL (9.4-12.4); Monocytes # 0.9 K/mcL (0.0-1.3); Monocytes % 6.8 %; Platelet Count 179 K/mcL (140-400); Red Blood Count 3.55 M/mcL (3.82-4.97); Red Cell Distribution Width 13.9 % (11.5-14.5); Segmented Neutrophils % 71.6 %; White Blood Count 12.5 K/mcL (4.3-11.1)
[2021-06-07 09:13] LABS: Alanine Aminotransferase 12 Units/L (7-52); Albumin 3.4 g/dL (3.5-5.7); Albumin/Globulin Ratio 1.5 (1.1-2.2); Alkaline Phosphatase 56 Units/L (34-104); Aspartate Amino Transferase 11 Units/L (13-39); BUN/Creatinine Ratio 53 (6-26); Bilirubin,Total 0.3 mg/dL (0.3-1.0); Blood Urea Nitrogen 34 mg/dL (8-23); Calcium 8.7 mg/dL (8.6-10.3); Carbon Dioxide 37 mEq/L (23-29); Chloride 93 mEq/L (98-107); Globulin 2.3 g/dL (2.4-3.5); Glucose 239 mg/dL (70-105); Osmolality,Calculated 295 (280-300); Potassium 4.4 mEq/L (3.5-5.1); Sodium 135 mEq/L (136-145); Total Protein 5.7 g/dL (6.4-8.9); eGFR For African Americans > 60 (> 60); eGFR For Non-African Americans > 60 (> 60)
[2021-06-07] MEDS: cefTRIAXone 1,000 MG in 0.9 % Sodium Chloride 10 ML IVP SCH (11:43)
[2021-06-07] MEDS: Furosemide 40 MG/4 ML VIAL IVP SCH ×2 (11:44→20:04)
[2021-06-07] MEDS: MethylPREDNISolone 40 MG/ML VIAL IVP SCH ×2 (11:45→20:00)
[2021-06-07] MEDS: Loratadine 10 MG TABLET PO SCH (11:47)
[2021-06-07] MEDS: Aspirin Enteric Coated 81 MG Tablet PO SCH (11:47)
[2021-06-07] MEDS: Cholecalciferol (D-3) 1,000 UNIT (25MCG) TABLET PO SCH (11:47)
[2021-06-07] MEDS: Insulin DETEMIR 100 UNIT/ML X5UNITS SUBQ SCH ×2 (11:53→21:08)
[2021-06-07] MEDS: Doxycycline 100 MG in 0.9 % Sodium Chloride Mini Bag 100 ML IVPB SCH ×2 (12:14→19:59)
[2021-06-07] MEDS: cloZAPine 100 MG TABLET PO SCH (20:06)
[2021-06-07] MEDS: Divalproex (24 HR) 500 MG TABLET PO SCH (20:07)
[2021-06-08 02:54] LABS: Basophils % 0.2 %; Eosinophils % 0.1 %; Hematocrit 34.8 % (35.3-44.9); Immature Granulocytes % 1.2 % (0-4); Lymphocytes # 1.8 K/mcL (0.6-4.6); Lymphocytes % 14.8 %; Mean Corpuscular HGB Conc 31.6 g/dL (31.6-35.5); Mean Corpuscular Hemoglobin 30.7 pg (28.0-33.3); Mean Corpuscular Volume 97.2 fL (83.0-100.0); Monocytes # 0.8 K/mcL (0.0-1.3); Monocytes % 6.8 %; Neutrophils # 9.3 K/mcL (1.6-8.9); Platelet Count 124 K/mcL (140-400); Red Blood Count 3.58 M/mcL (3.82-4.97); Red Cell Distribution Width 13.4 % (11.5-14.5); Segmented Neutrophils % 76.9 %; White Blood Count 12.1 K/mcL (4.3-11.1)
[2021-06-08 03:11] LABS: BUN/Creatinine Ratio 53 (6-26); Blood Urea Nitrogen 31 mg/dL (8-23); Carbon Dioxide 36 mEq/L (23-29); Chloride 90 mEq/L (98-107); Glucose 238 mg/dL (70-105); Osmolality,Calculated 288 (280-300); Potassium 4.3 mEq/L (3.5-5.1); Sodium 132 mEq/L (136-145); eGFR For African Americans > 60 (> 60); eGFR For Non-African Americans > 60 (> 60)
[2021-06-08] MEDS: Acetylcysteine 10% 2 ML INHSOL IH SCH ×4 (04:04→20:28)
[2021-06-08] MEDS: Ipratropium/Albuterol Neb 3 ML IH SCH ×4 (04:04→20:28)
[2021-06-08] MEDS: Doxycycline 100 MG in 0.9 % Sodium Chloride Mini Bag 100 ML IVPB SCH ×2 (05:55→17:32)
[2021-06-08] MEDS: Aspirin Enteric Coated 81 MG Tablet PO SCH (07:35)
[2021-06-08] MEDS: MethylPREDNISolone 40 MG/ML VIAL IVP SCH ×2 (07:35→21:35)
[2021-06-08] MEDS: Cholecalciferol (D-3) 1,000 UNIT (25MCG) TABLET PO SCH (07:35)
[2021-06-08] MEDS: Loratadine 10 MG TABLET PO SCH (07:35)
[2021-06-08] MEDS: Insulin LISPRO 300 UNITS/3 ML VIAL SUBQ SCH ×4 (07:36→21:38)
[2021-06-08] MEDS: Furosemide 40 MG/4 ML VIAL IVP SCH ×2 (07:36→21:37)
[2021-06-08] MEDS: Insulin DETEMIR 100 UNIT/ML X5UNITS SUBQ SCH ×2 (07:36→21:37)
[2021-06-08] MEDS: Budesonide/Formoterol 160/4.5 1 PUFF INH IH SCH ×2 (07:42→20:28)
[2021-06-08] MEDS: cefTRIAXone 1,000 MG in 0.9 % Sodium Chloride 10 ML IVP SCH (13:29)
[2021-06-08] MEDS: cloZAPine 100 MG TABLET PO SCH (21:36)
[2021-06-08] MEDS: Divalproex (24 HR) 500 MG TABLET PO SCH (21:37)
[2021-06-09] MEDS: Ipratropium/Albuterol Neb 3 ML IH SCH ×4 (04:11→20:05)
[2021-06-09] MEDS: Acetylcysteine 10% 2 ML INHSOL IH SCH ×4 (04:11→20:05)
[2021-06-09] MEDS: Doxycycline 100 MG in 0.9 % Sodium Chloride Mini Bag 100 ML IVPB SCH (05:15)
[2021-06-09 05:44] LABS: Basophils % 0.2 %; Eosinophils % 0.1 %; Hematocrit 34.9 % (35.3-44.9); Hemoglobin 11.2 g/dL (11.5-15.4); Immature Granulocytes % 0.9 % (0-4); Lymphocytes # 1.7 K/mcL (0.6-4.6); Lymphocytes % 13.6 %; Mean Corpuscular HGB Conc 32.1 g/dL (31.6-35.5); Mean Corpuscular Hemoglobin 30.4 pg (28.0-33.3); Mean Corpuscular Volume 94.6 fL (83.0-100.0); Mean Platelet Volume 12.4 fL (9.4-12.4); Monocytes # 0.9 K/mcL (0.0-1.3); Monocytes % 6.9 %; Platelet Count 181 K/mcL (140-400); Red Blood Count 3.69 M/mcL (3.82-4.97); Red Cell Distribution Width 13.5 % (11.5-14.5); Segmented Neutrophils % 78.3 %; White Blood Count 12.7 K/mcL (4.3-11.1)
[2021-06-09 06:01] LABS: BUN/Creatinine Ratio 45 (6-26); Blood Urea Nitrogen 37 mg/dL (8-23); Calcium 8.8 mg/dL (8.6-10.3); Carbon Dioxide 34 mEq/L (23-29); Chloride 88 mEq/L (98-107); Glucose 411 mg/dL (70-105); Osmolality,Calculated 296 (280-300); Potassium 4.5 mEq/L (3.5-5.1); Sodium 130 mEq/L (136-145); eGFR For African Americans > 60 (> 60); eGFR For Non-African Americans > 60 (> 60)
[2021-06-09] MEDS: Budesonide/Formoterol 160/4.5 1 PUFF INH IH SCH ×2 (08:04→20:05)
[2021-06-09] MEDS: Loratadine 10 MG TABLET PO SCH (08:16)
[2021-06-09] MEDS: Aspirin Enteric Coated 81 MG Tablet PO SCH (08:16)
[2021-06-09] MEDS: Cholecalciferol (D-3) 1,000 UNIT (25MCG) TABLET PO SCH (08:16)
[2021-06-09] MEDS: Insulin LISPRO 300 UNITS/3 ML VIAL SUBQ SCH ×4 (08:17→21:18)
[2021-06-09] MEDS: MethylPREDNISolone 40 MG/ML VIAL IVP SCH (08:17)
[2021-06-09] MEDS: Insulin DETEMIR 100 UNIT/ML X5UNITS SUBQ SCH ×2 (08:17→21:18)
[2021-06-09] MEDS: Furosemide 40 MG/4 ML VIAL IVP SCH (08:17)
[2021-06-09] MEDS: cefTRIAXone 1,000 MG in 0.9 % Sodium Chloride 10 ML IVP SCH (13:00)
[2021-06-09] MEDS: cloZAPine 100 MG TABLET PO SCH (21:17)
[2021-06-09] MEDS: Divalproex (24 HR) 500 MG TABLET PO SCH (21:17)
[2021-06-10] MEDS: Acetylcysteine 10% 2 ML INHSOL IH SCH ×4 (04:10→20:13)
[2021-06-10] MEDS: Ipratropium/Albuterol Neb 3 ML IH SCH ×4 (04:10→20:13)
[2021-06-10 07:02] LABS: Basophils % 0.1 %; Eosinophils # 0.1 K/mcL (0.0-0.6); Eosinophils % 0.9 %; Hematocrit 32.2 % (35.3-44.9); Hemoglobin 10.5 g/dL (11.5-15.4); Immature Granulocytes % 0.8 % (0-4); Lymphocytes # 4.6 K/mcL (0.6-4.6); Mean Corpuscular HGB Conc 32.6 g/dL (31.6-35.5); Mean Corpuscular Hemoglobin 31.3 pg (28.0-33.3); Mean Corpuscular Volume 95.8 fL (83.0-100.0); Mean Platelet Volume 12.6 fL (9.4-12.4); Monocytes # 1.8 K/mcL (0.0-1.3); Monocytes % 13.3 %; Neutrophils # 6.9 K/mcL (1.6-8.9); Platelet Count 151 K/mcL (140-400); Red Blood Count 3.36 M/mcL (3.82-4.97); Red Cell Distribution Width 13.7 % (11.5-14.5); Segmented Neutrophils % 50.9 %; White Blood Count 13.6 K/mcL (4.3-11.1)
[2021-06-10 08:17] LABS: BUN/Creatinine Ratio 59 (6-26); Blood Urea Nitrogen 40 mg/dL (8-23); Calcium 8.8 mg/dL (8.6-10.3); Carbon Dioxide 36 mEq/L (23-29); Chloride 92 mEq/L (98-107); Glucose 126 mg/dL (70-105); Osmolality,Calculated 287 (280-300); Potassium 4.1 mEq/L (3.5-5.1); Sodium 133 mEq/L (136-145); eGFR For African Americans > 60 (> 60); eGFR For Non-African Americans > 60 (> 60)
[2021-06-10] MEDS: Cholecalciferol (D-3) 1,000 UNIT (25MCG) TABLET PO SCH (09:44)
[2021-06-10] MEDS: Loratadine 10 MG TABLET PO SCH (09:44)
[2021-06-10] MEDS: predniSONE 20 MG TABLET PO SCH (09:44)
[2021-06-10] MEDS: Aspirin Enteric Coated 81 MG Tablet PO SCH (09:44)
[2021-06-10] MEDS: Insulin LISPRO 300 UNITS/3 ML VIAL SUBQ SCH ×4 (09:45→20:25)
[2021-06-10] MEDS: Furosemide 40 MG TABLET PO SCH (09:45)
[2021-06-10] MEDS: Budesonide/Formoterol 160/4.5 1 PUFF INH IH SCH ×2 (10:15→20:13)
[2021-06-10] MEDS: Insulin DETEMIR 100 UNIT/ML X5UNITS SUBQ SCH ×2 (11:04→21:00)
[2021-06-10 11:30] LABS: Influenza A PCR Negative (Negative); Influenza B PCR Negative (Negative); Resp. Syncytial Virus PCR Negative (Negative)
[2021-06-10 11:41] LABS: SARS-CoV-2 by PCR (In House) Negative (Negative)
[2021-06-10] MEDS: cloZAPine 100 MG TABLET PO SCH (20:20)
[2021-06-10] MEDS: Divalproex (24 HR) 500 MG TABLET PO SCH (20:22)
[2021-06-11] MEDS: Acetylcysteine 10% 2 ML INHSOL IH SCH ×2 (03:53→08:04)
[2021-06-11] MEDS: Ipratropium/Albuterol Neb 3 ML IH SCH ×2 (03:53→08:04)
[2021-06-11 07:10] VITALS: BP 131/74; PULSE 81; TEMP 98
[2021-06-11] MEDS: Budesonide/Formoterol 160/4.5 1 PUFF INH IH SCH (08:04)
[2021-06-11 08:07] VITALS: O2SAT 97
[2021-06-11] MEDS: Aspirin Enteric Coated 81 MG Tablet PO SCH (08:16)
[2021-06-11] MEDS: Cholecalciferol (D-3) 1,000 UNIT (25MCG) TABLET PO SCH (08:16)
[2021-06-11] MEDS: predniSONE 20 MG TABLET PO SCH (08:16)
[2021-06-11] MEDS: Loratadine 10 MG TABLET PO SCH (08:17)
[2021-06-11] MEDS: Furosemide 40 MG TABLET PO SCH (08:17)
[2021-06-11] MEDS: Insulin DETEMIR 100 UNIT/ML X5UNITS SUBQ SCH (08:26)
[2021-06-11] MEDS: Insulin LISPRO 300 UNITS/3 ML VIAL SUBQ SCH (08:27)
== END 2021-06-11 09:00 | DRG 291 ==
LOC: EMEROOARM 23:44 → 3NENU 23:44 → SUATTDRO 05-31 05:36 → 3NENU 05-31 06:11 → SUATTDRO 06-01 15:22
PROVIDERS: ADMIT Student in an Organized Health Care Education/Training Program; ATTEND Family Medicine

== ENCOUNTER 2021-10-04 10:49 | Inpatient (IN) ==
[2021-10-04 11:25] LABS: Basophils # 0.1 K/mcL (0.0-0.2); Basophils % 0.6 %; Eosinophils # 0.1 K/mcL (0.0-0.6); Eosinophils % 1.3 %; Hematocrit 33.2 % (35.3-44.9); Hemoglobin 10.3 g/dL (11.5-15.4); Immature Granulocytes % 0.6 % (0-4); Lymphocytes % 22.4 %; Mean Platelet Volume 11.4 fL (9.4-12.4); Monocytes # 1.4 K/mcL (0.0-1.3); Neutrophils # 5.3 K/mcL (1.6-8.9); Platelet Count 201 K/mcL (140-400); Red Blood Count 3.32 M/mcL (3.82-4.97); Red Cell Distribution Width 14.1 % (11.5-14.5); Segmented Neutrophils % 59.1 %; White Blood Count 8.9 K/mcL (4.3-11.1)
[2021-10-04 11:31] LABS: Prothrombin Time 10.8 Seconds (9.4-12.1)
[2021-10-04 11:33] LABS: Activated Partial Thrombo Time 32.3 Seconds (26.0-36.0)
[2021-10-04 11:41] LABS: ABG Base Excess 14 mEq/L (-2 to 3); ABG HCO3 42 mEq/L (21-27); ABG Oxygen Saturation 92 % (95-98); ABG PCO2 71 mmHg (35-45); ABG PH 7.37 pH Units (7.32-7.45); ABG PO2 70 mmHg (85-104); ABG TCO2 44 mEq/L (20-26)
[2021-10-04 11:46] LABS: Alanine Aminotransferase 11 Units/L (7-52); Albumin 2.8 g/dL (3.5-5.7); Albumin/Globulin Ratio 1.8 (1.1-2.2); Alkaline Phosphatase 41 Units/L (34-104); Aspartate Amino Transferase 13 Units/L (13-39); BUN/Creatinine Ratio 35 (6-26); Bilirubin,Indirect 0.2 mg/dL (0.0-1.0); Bilirubin,Total 0.2 mg/dL (0.3-1.0); Blood Urea Nitrogen 15 mg/dL (8-23); Calcium 6.6 mg/dL (8.6-10.3); Carbon Dioxide 30 mEq/L (23-29); Chloride 108 mEq/L (98-107); Globulin 1.6 g/dL (2.4-3.5); Glucose 117 mg/dL (70-105); Osmolality,Calculated 300 (280-300); Potassium 2.8 mEq/L (3.5-5.1); Sodium 144 mEq/L (136-145); Total Protein 4.4 g/dL (6.4-8.9); Troponin I < 0.03 ng/mL (< 0.04); eGFR For African Americans > 60 (> 60); eGFR For Non-African Americans > 60 (> 60)
[2021-10-04] MEDS ORDERED: Azithromycin 500 MG in 0.9 % Sodium Chloride 250 ML IVPB ONE (12:05)
[2021-10-04] MEDS ORDERED: methylPREDNISolone 125 MG/2 ML VIAL IVP ONE (12:05)
[2021-10-04 12:37] LABS: Adenovirus Not Detected (Not Detect); Bordetella Pertussis Not Detected (Not Detect); Chlamydophila pneumoniae Not Detected (Not Detect); Coronavirus 229E Not Detected (Not Detect); Coronavirus HKU1 Not Detected (Not Detect); Coronavirus NL63 Not Detected (Not Detect); Coronavirus OC43 Not Detected (Not Detect); Human Metapneumovirus Not Detected (Not Detect); Human Rhinovirus/Enterovirus Not Detected (Not Detect); Influenza A Subtype 2009 H1 Not Detected (Not Detect); Influenza B Not Detected (Not Detect); Mycoplasma pneumoniae Not Detected (Not Detect); Parainfluenza Virus 1 Not Detected (Not Detect); Parainfluenza Virus 2 Not Detected (Not Detect); Parainfluenza Virus 3 Not Detected (Not Detect); Parainfluenza Virus 4 Not Detected (Not Detect); Respiratory Syncytial Virus Not Detected (Not Detect); SARS-CoV-2 Not Detected (Not Detect)
[2021-10-04] MEDS: Calcium Gluconate 1gm/50mL 1 GM/50 ML BAG IVPB SCH ×2 (12:38→13:33)
[2021-10-04] MEDS ORDERED: Ondansetron 4 MG/2 ML VIAL IVP PRN (14:00)
[2021-10-04] MEDS ORDERED: Acetaminophen 325 MG TABLET PO PRN (14:00)
[2021-10-04] MEDS ORDERED: Naloxone 0.4 MG/ML INJ IVP PRN (14:00)
[2021-10-04] MEDS ORDERED: levoFLOXacin 750 MG/150 ML 750 MG/150 ML BAG IVPB SCH (14:15)
[2021-10-04] MEDS ORDERED: D5% in Water 1,000 ML IVC PRN (14:16)
[2021-10-04] MEDS ORDERED: *HR* Dextrose 50 % in Water (Syg) 50 ML SYRINGE IVP PRN (14:16)
[2021-10-04] MEDS ORDERED: Dextrose Gel 15 GM/37.5 ML TUBE PO PRN ×2 (14:16)
[2021-10-04 14:22] LABS: Magnesium 1.2 mg/dL (1.6-2.6)
[2021-10-04 15:58] LABS: Estimated Average Glucose 183 mg/dl
[2021-10-04 16:27] LABS: BUN/Creatinine Ratio 32 (6-26); Blood Urea Nitrogen 20 mg/dL (8-23); Carbon Dioxide 36 mEq/L (23-29); Chloride 96 mEq/L (98-107); Glucose 122 mg/dL (70-105); Osmolality,Calculated 294 (280-300); Potassium 4.5 mEq/L (3.5-5.1); Sodium 140 mEq/L (136-145); Troponin I < 0.03 ng/mL (< 0.04); eGFR For African Americans > 60 (> 60); eGFR For Non-African Americans > 60 (> 60)
[2021-10-04] MEDS: cefTRIAXone 1,000 MG in 0.9 % Sodium Chloride 10 ML IVP SCH (18:37)
[2021-10-04] MEDS: Insulin LISPRO 300 UNITS/3 ML VIAL SUBQ SCH ×2 (18:38→23:40)
[2021-10-04] MEDS ORDERED: Divalproex (24 HR) 500 MG TABLET PO SCH (21:00)
[2021-10-04] MEDS: cloZAPine 100 MG TABLET PO SCH (21:01)
[2021-10-04 21:14] LABS: ABG Base Excess 11 mEq/L (-2 to 3); ABG HCO3 39 mEq/L (21-27); ABG Oxygen Saturation 96 % (95-98); ABG PCO2 64 mmHg (35-45); ABG PH 7.39 pH Units (7.32-7.45); ABG PO2 90 mmHg (85-104); ABG TCO2 41 mEq/L (20-26); Blood Gas Modality avaps; Blood Gas VT 400 cc
[2021-10-04] MEDS: *HR* Heparin 5,000 UNIT/ML VIAL SQ SCH (21:21)
[2021-10-04] MEDS: MethylPREDNISolone 40 MG/ML VIAL IVP SCH (23:40)
[2021-10-05] MEDS: Valproic Acid INJ 500 MG in 0.9 % Sodium Chloride 100 ML IVPB SCH ×3 (01:09→17:01)
[2021-10-05] MEDS: *HR* Heparin 5,000 UNIT/ML VIAL SQ SCH ×3 (05:18→20:50)
[2021-10-05] MEDS: Insulin LISPRO 300 UNITS/3 ML VIAL SUBQ SCH ×3 (05:19→17:01)
[2021-10-05 07:47] LABS: Bilirubin,Urine Negative (Negative); Blood,Urine Moderate (Negative); Clarity,Urine Clear (Clear); Color,Urine Yellow (Yellow); Glucose,Urine (UA) Normal (Normal); Ketones,Urine 60 mg/dL (Negative); Leukocyte Esterase,Urine Trace (Negative); Mucus,Urine Few per lpf (None-Few); Nitrite,Urine Negative (Negative); Protein,Urine 30 mg/dL (Neg-Trace); RBC,Urine TNTC per hpf (0-3); Specific Gravity,Urine > 1.030 (1.010-1.025); Squamous Epithelial Cell,Urine Few per hpf (None-Few); Urobilinogen,Urine Normal (Normal)
[2021-10-05 08:43] LABS: Hematocrit 33.6 % (35.3-44.9); Hemoglobin 10.6 g/dL (11.5-15.4); Mean Corpuscular HGB Conc 31.5 g/dL (31.6-35.5); Mean Corpuscular Hemoglobin 30.8 pg (28.0-33.3); Mean Corpuscular Volume 97.7 fL (83.0-100.0); Mean Platelet Volume 11.1 fL (9.4-12.4); Platelet Count 205 K/mcL (140-400); Red Blood Count 3.44 M/mcL (3.82-4.97); Red Cell Distribution Width 14.1 % (11.5-14.5); White Blood Count 10.9 K/mcL (4.3-11.1)
[2021-10-05 09:01] LABS: BUN/Creatinine Ratio 43 (6-26); Blood Urea Nitrogen 25 mg/dL (8-23); Calcium 9.3 mg/dL (8.6-10.3); Carbon Dioxide 38 mEq/L (23-29); Chloride 96 mEq/L (98-107); Glucose 160 mg/dL (70-105); Osmolality,Calculated 296 (280-300); Sodium 139 mEq/L (136-145); eGFR For African Americans > 60 (> 60); eGFR For Non-African Americans > 60 (> 60)
[2021-10-05] MEDS: MethylPREDNISolone 40 MG/ML VIAL IVP SCH ×2 (09:33→16:58)
[2021-10-05] MEDS: Aspirin Enteric Coated 81 MG Tablet PO SCH (09:34)
[2021-10-05] MEDS: Metoprolol XL (24 HR) Succ 25 MG TAB.ER.24H PO SCH (09:34)
[2021-10-05 09:50] LABS: Lymphocytes # 1.3 K/mcL (0.6-4.6); Monocytes # 0.4 K/mcL (0.0-1.3); Neutrophils # 9.2 K/mcL (1.6-8.9)
[2021-10-05 09:51] LABS: Hypochromasia Present (Not Present); Platelet Estimate Normal (Normal)
[2021-10-05] MEDS: cefTRIAXone 1,000 MG in 0.9 % Sodium Chloride 10 ML IVP SCH (16:59)
[2021-10-05] MEDS: Azithromycin 500 MG in 0.9 % Sodium Chloride 250 ML IVPB SCH (17:00)
[2021-10-05] MEDS: cloZAPine 100 MG TABLET PO SCH (20:45)
[2021-10-05] MEDS ORDERED: Insulin LISPRO 300 UNITS/3 ML VIAL SUBQ SCH (21:00)
[2021-10-06] MEDS: Valproic Acid INJ 500 MG in 0.9 % Sodium Chloride 100 ML IVPB SCH ×2 (00:31→11:11)
[2021-10-06] MEDS: MethylPREDNISolone 40 MG/ML VIAL IVP SCH ×3 (01:03→14:35)
[2021-10-06] MEDS: *HR* Heparin 5,000 UNIT/ML VIAL SQ SCH ×2 (06:20→13:17)
[2021-10-06] MEDS ORDERED: Furosemide 40 MG/4 ML VIAL IVP ONE (08:36)
[2021-10-06 09:34] LABS: Hematocrit 33.2 % (35.3-44.9); Hemoglobin 10.3 g/dL (11.5-15.4); Mean Corpuscular Hemoglobin 30.3 pg (28.0-33.3); Mean Corpuscular Volume 97.6 fL (83.0-100.0); Mean Platelet Volume 11.4 fL (9.4-12.4); Platelet Count 221 K/mcL (140-400); Red Cell Distribution Width 13.8 % (11.5-14.5); White Blood Count 9.1 K/mcL (4.3-11.1)
[2021-10-06 10:19] LABS: BUN/Creatinine Ratio 37 (6-26); Blood Urea Nitrogen 22 mg/dL (8-23); Calcium 9.1 mg/dL (8.6-10.3); Carbon Dioxide 33 mEq/L (23-29); Chloride 94 mEq/L (98-107); Glucose 284 mg/dL (70-105); Osmolality,Calculated 292 (280-300); Potassium 4.6 mEq/L (3.5-5.1); Sodium 134 mEq/L (136-145); eGFR For African Americans > 60 (> 60); eGFR For Non-African Americans > 60 (> 60)
[2021-10-06] MEDS: Insulin LISPRO 300 UNITS/3 ML VIAL SUBQ SCH ×5 (11:11→20:55)
[2021-10-06] MEDS: Aspirin Enteric Coated 81 MG Tablet PO SCH (11:12)
[2021-10-06] MEDS: Metoprolol XL (24 HR) Succ 25 MG TAB.ER.24H PO SCH (11:12)
[2021-10-06 12:25] LABS: Basophils # 0.2 K/mcL (0.0-0.2); Lymphocytes # 1.6 K/mcL (0.6-4.6); Monocytes # 0.6 K/mcL (0.0-1.3); Neutrophils # 6.7 K/mcL (1.6-8.9); Platelet Estimate Normal (Normal)
[2021-10-06] MEDS: cefTRIAXone 1,000 MG in 0.9 % Sodium Chloride 10 ML IVP SCH (13:17)
[2021-10-06] MEDS: Azithromycin 500 MG in 0.9 % Sodium Chloride 250 ML IVPB SCH (13:18)
[2021-10-06] MEDS: cloZAPine 100 MG TABLET PO SCH (20:53)
[2021-10-06] MEDS: Divalproex (24 HR) 500 MG TABLET PO SCH (20:54)
[2021-10-06] MEDS: Insulin DETEMIR 100 UNIT/ML X5UNITS SUBQ SCH (20:54)
[2021-10-07] MEDS: *HR* Heparin 5,000 UNIT/ML VIAL SQ SCH ×4 (00:38→22:45)
[2021-10-07] MEDS: MethylPREDNISolone 40 MG/ML VIAL IVP SCH ×2 (00:39→08:01)
[2021-10-07 06:04] LABS: Basophils % 0.3 %; Eosinophils % 0.2 %; Hematocrit 33.8 % (35.3-44.9); Hemoglobin 10.7 g/dL (11.5-15.4); Immature Granulocytes % 0.8 % (0-4); Lymphocytes # 2.8 K/mcL (0.6-4.6); Mean Corpuscular HGB Conc 31.7 g/dL (31.6-35.5); Mean Corpuscular Hemoglobin 30.2 pg (28.0-33.3); Mean Corpuscular Volume 95.5 fL (83.0-100.0); Mean Platelet Volume 11.4 fL (9.4-12.4); Monocytes % 8.6 %; Platelet Count 231 K/mcL (140-400); Red Blood Count 3.54 M/mcL (3.82-4.97); Red Cell Distribution Width 13.4 % (11.5-14.5); Segmented Neutrophils % 67.1 %
[2021-10-07 06:17] LABS: Neutrophils # 8.1 K/mcL (1.6-8.9)
[2021-10-07 06:21] LABS: BUN/Creatinine Ratio 34 (6-26); Blood Urea Nitrogen 19 mg/dL (8-23); Calcium 8.9 mg/dL (8.6-10.3); Carbon Dioxide 37 mEq/L (23-29); Chloride 91 mEq/L (98-107); Glucose 280 mg/dL (70-105); Osmolality,Calculated 288 (280-300); Potassium 4.4 mEq/L (3.5-5.1); Sodium 133 mEq/L (136-145); eGFR For African Americans > 60 (> 60); eGFR For Non-African Americans > 60 (> 60)
[2021-10-07 06:39] LABS: Platelet Estimate Normal (Normal)
[2021-10-07] MEDS: Metoprolol XL (24 HR) Succ 25 MG TAB.ER.24H PO SCH (08:01)
[2021-10-07] MEDS: Aspirin Enteric Coated 81 MG Tablet PO SCH (08:01)
[2021-10-07] MEDS: Insulin LISPRO 300 UNITS/3 ML VIAL SUBQ SCH ×4 (08:02→22:44)
[2021-10-07] MEDS: predniSONE 20 MG TABLET PO SCH (12:21)
[2021-10-07] MEDS: Furosemide 40 MG/4 ML VIAL IVP SCH (12:22)
[2021-10-07] MEDS: Azithromycin 250 MG TABLET PO SCH (14:35)
[2021-10-07] MEDS: cloZAPine 100 MG TABLET PO SCH (22:44)
[2021-10-07] MEDS: Divalproex (24 HR) 500 MG TABLET PO SCH (22:44)
[2021-10-07] MEDS: Insulin DETEMIR 100 UNIT/ML X5UNITS SUBQ SCH (22:45)
[2021-10-08] MEDS: *HR* Heparin 5,000 UNIT/ML VIAL SQ SCH ×3 (06:01→20:05)
[2021-10-08] MEDS: predniSONE 20 MG TABLET PO SCH (08:16)
[2021-10-08] MEDS: Aspirin Enteric Coated 81 MG Tablet PO SCH (08:16)
[2021-10-08] MEDS: Metoprolol XL (24 HR) Succ 25 MG TAB.ER.24H PO SCH (08:17)
[2021-10-08] MEDS: Insulin LISPRO 300 UNITS/3 ML VIAL SUBQ SCH ×4 (08:18→20:02)
[2021-10-08] MEDS: Furosemide 40 MG/4 ML VIAL IVP SCH (08:20)
[2021-10-08] MEDS ORDERED: Insulin DETEMIR 100 UNIT/ML X5UNITS SUBQ ONE (08:39)
[2021-10-08 09:59] LABS: Hemoglobin 10.8 g/dL (11.5-15.4); Mean Corpuscular HGB Conc 31.8 g/dL (31.6-35.5); Mean Corpuscular Hemoglobin 30.4 pg (28.0-33.3); Mean Corpuscular Volume 95.8 fL (83.0-100.0); Mean Platelet Volume 11.5 fL (9.4-12.4); Platelet Count 214 K/mcL (140-400); Red Blood Count 3.55 M/mcL (3.82-4.97); Red Cell Distribution Width 13.2 % (11.5-14.5); White Blood Count 12.8 K/mcL (4.3-11.1)
[2021-10-08 10:37] LABS: BUN/Creatinine Ratio 34 (6-26); Blood Urea Nitrogen 21 mg/dL (8-23); Calcium 8.8 mg/dL (8.6-10.3); Carbon Dioxide 34 mEq/L (23-29); Chloride 84 mEq/L (98-107); Glucose 312 mg/dL (70-105); Osmolality,Calculated 277 (280-300); Potassium 3.5 mEq/L (3.5-5.1); Sodium 126 mEq/L (136-145); eGFR For African Americans > 60 (> 60); eGFR For Non-African Americans > 60 (> 60)
[2021-10-08 11:38] LABS: Lymphocytes # 4.6 K/mcL (0.6-4.6); Monocytes # 0.8 K/mcL (0.0-1.3); Neutrophils # 7.4 K/mcL (1.6-8.9); Reactive Lymphocytes Present (Not Present)
[2021-10-08 11:39] LABS: Platelet Estimate Normal (Normal)
[2021-10-08 14:33] LABS: BUN/Creatinine Ratio 36 (6-26); Blood Urea Nitrogen 26 mg/dL (8-23); Calcium 8.7 mg/dL (8.6-10.3); Carbon Dioxide 36 mEq/L (23-29); Chloride 84 mEq/L (98-107); Glucose 424 mg/dL (70-105); Magnesium 1.7 mg/dL (1.6-2.6); Osmolality,Calculated 285 (280-300); Potassium 4.3 mEq/L (3.5-5.1); Sodium 126 mEq/L (136-145); eGFR For African Americans > 60 (> 60); eGFR For Non-African Americans > 60 (> 60)
[2021-10-08] MEDS: Azithromycin 250 MG TABLET PO SCH (16:27)
[2021-10-08] MEDS: Divalproex (24 HR) 500 MG TABLET PO SCH (20:01)
[2021-10-08] MEDS: cloZAPine 100 MG TABLET PO SCH (20:01)
[2021-10-08] MEDS ORDERED: Insulin DETEMIR 100 UNIT/ML X5UNITS SUBQ SCH (21:00)
[2021-10-09] MEDS: *HR* Heparin 5,000 UNIT/ML VIAL SQ SCH ×2 (05:36→13:37)
[2021-10-09 07:10] LABS: Basophils % 0.2 %; Eosinophils # 0.1 K/mcL (0.0-0.6); Hematocrit 33.5 % (35.3-44.9); Hemoglobin 10.6 g/dL (11.5-15.4); Immature Granulocytes % 0.9 % (0-4); Lymphocytes # 4.6 K/mcL (0.6-4.6); Lymphocytes % 36.1 %; Mean Corpuscular HGB Conc 31.6 g/dL (31.6-35.5); Mean Corpuscular Hemoglobin 30.4 pg (28.0-33.3); Mean Platelet Volume 11.4 fL (9.4-12.4); Monocytes # 1.5 K/mcL (0.0-1.3); Neutrophils # 6.4 K/mcL (1.6-8.9); Platelet Count 209 K/mcL (140-400); Red Blood Count 3.49 M/mcL (3.82-4.97); Red Cell Distribution Width 13.2 % (11.5-14.5); Segmented Neutrophils % 49.8 %; White Blood Count 12.8 K/mcL (4.3-11.1)
[2021-10-09 07:31] LABS: BUN/Creatinine Ratio 42 (6-26); Blood Urea Nitrogen 24 mg/dL (8-23); Calcium 8.8 mg/dL (8.6-10.3); Carbon Dioxide 38 mEq/L (23-29); Chloride 89 mEq/L (98-107); Glucose 175 mg/dL (70-105); Osmolality,Calculated 280 (280-300); Potassium 3.8 mEq/L (3.5-5.1); Sodium 131 mEq/L (136-145); eGFR For African Americans > 60 (> 60); eGFR For Non-African Americans > 60 (> 60)
[2021-10-09] MEDS ORDERED: Furosemide 40 MG TABLET PO SCH (09:00)
[2021-10-09] MEDS: Metoprolol XL (24 HR) Succ 25 MG TAB.ER.24H PO SCH (09:37)
[2021-10-09] MEDS: Aspirin Enteric Coated 81 MG Tablet PO SCH (09:37)
[2021-10-09] MEDS: predniSONE 20 MG TABLET PO SCH (09:37)
[2021-10-09] MEDS: Insulin LISPRO 300 UNITS/3 ML VIAL SUBQ SCH ×2 (09:38→12:40)
[2021-10-09 11:18] LABS: Adenovirus Not Detected (Not Detect); Bordetella Pertussis Not Detected (Not Detect); Chlamydophila pneumoniae Not Detected (Not Detect); Coronavirus 229E Not Detected (Not Detect); Coronavirus HKU1 Not Detected (Not Detect); Coronavirus NL63 Not Detected (Not Detect); Coronavirus OC43 Not Detected (Not Detect); Human Metapneumovirus Not Detected (Not Detect); Human Rhinovirus/Enterovirus Not Detected (Not Detect); Influenza A Subtype 2009 H1 Not Detected (Not Detect); Influenza B Not Detected (Not Detect); Mycoplasma pneumoniae Not Detected (Not Detect); Parainfluenza Virus 1 Not Detected (Not Detect); Parainfluenza Virus 2 Not Detected (Not Detect); Parainfluenza Virus 3 Not Detected (Not Detect); Parainfluenza Virus 4 Not Detected (Not Detect); Respiratory Syncytial Virus Not Detected (Not Detect); SARS-CoV-2 Not Detected (Not Detect)
[2021-10-09 11:40] VITALS: BP 131/66; PULSE 90; TEMP 97.6; O2SAT 92
== END 2021-10-09 15:37 | disposition other institution (70) | DRG 291 ==
LOC: 2NENU 10:49 → EMEROOARM 10:49 → SUATTDRO 14:02 → 2NENU 14:47 → SUATTDRO 10-06 15:24
PROVIDERS: ADMIT General Practice; ATTEND Internal Medicine

== ENCOUNTER 2021-10-11 09:53 | Inpatient (IN) ==
[2021-10-11] MEDS ORDERED: Vancomycin 1,500 MG/265 ML IV.SOLN IVPB ONE (10:03)
[2021-10-11] MEDS ORDERED: Cefepime HCl 2,000 MG in 0.9 % Sodium Chloride 10 ML IVP ONE (10:03)
[2021-10-11 10:27] LABS: Bilirubin,Urine Negative (Negative); Blood,Urine Negative (Negative); Clarity,Urine Clear (Clear); Color,Urine Light-Yellow (Yellow); Glucose,Urine (UA) 500 mg/dL (Normal); Hyaline Casts,Urine Few per lpf (None Seen); Ketones,Urine Trace mg/dL (Negative); Leukocyte Esterase,Urine Negative (Negative); Nitrite,Urine Negative (Negative); Protein,Urine Negative (Neg-Trace); RBC,Urine 0-3 per hpf (0-3); Urobilinogen,Urine Normal (Normal); WBC,Urine 0-3 per hpf (0-3)
[2021-10-11 10:35] LABS: VBG HCO3 37 mEq/L (21-27); VBG PCO2 66 mmHg (41-51); VBG PH 7.36 pH Units (7.32-7.42); VBG PO2 60 mmHg (25-50)
[2021-10-11 10:35] LABS: Basophils % 0.2 %; Eosinophils # 0.2 K/mcL (0.0-0.6); Eosinophils % 1.1 %; Hemoglobin 11.6 g/dL (11.5-15.4); Immature Granulocytes % 0.4 % (0-4); Lymphocytes # 2.1 K/mcL (0.6-4.6); Lymphocytes % 12.8 %; Mean Corpuscular HGB Conc 31.4 g/dL (31.6-35.5); Mean Corpuscular Hemoglobin 30.7 pg (28.0-33.3); Mean Corpuscular Volume 97.9 fL (83.0-100.0); Mean Platelet Volume 11.5 fL (9.4-12.4); Monocytes # 1.7 K/mcL (0.0-1.3); Monocytes % 10.4 %; Neutrophils # 12.2 K/mcL (1.6-8.9); Platelet Count 209 K/mcL (140-400); Red Blood Count 3.78 M/mcL (3.82-4.97); Red Cell Distribution Width 13.9 % (11.5-14.5); Segmented Neutrophils % 75.1 %; White Blood Count 16.2 K/mcL (4.3-11.1)
[2021-10-11 10:43] LABS: INR 0.9; Prothrombin Time 10.1 Seconds (9.4-12.1)
[2021-10-11 10:46] LABS: Activated Partial Thrombo Time 27.6 Seconds (26.0-36.0)
[2021-10-11 11:01] LABS: Alanine Aminotransferase 16 Units/L (7-52); Albumin 3.7 g/dL (3.5-5.7); Albumin/Globulin Ratio 1.4 (1.1-2.2); Alkaline Phosphatase 63 Units/L (34-104); Aspartate Amino Transferase 11 Units/L (13-39); BUN/Creatinine Ratio 28 (6-26); Bilirubin,Direct 0.1 mg/dL (0.0-0.2); Bilirubin,Indirect 0.4 mg/dL (0.0-1.0); Bilirubin,Total 0.5 mg/dL (0.3-1.0); Blood Urea Nitrogen 26 mg/dL (8-23); Calcium 8.7 mg/dL (8.6-10.3); Carbon Dioxide 38 mEq/L (23-29); Chloride 93 mEq/L (98-107); Globulin 2.6 g/dL (2.4-3.5); Glucose 294 mg/dL (70-105); Magnesium 1.7 mg/dL (1.6-2.6); Osmolality,Calculated 302 (280-300); Phosphorous 2.6 mg/dL (2.7-4.5); Potassium 3.8 mEq/L (3.5-5.1); Sodium 138 mEq/L (136-145); Total Protein 6.3 g/dL (6.4-8.9); Troponin I < 0.03 ng/mL (< 0.04); eGFR For African Americans > 60 (> 60); eGFR For Non-African Americans > 60 (> 60)
[2021-10-11] MEDS ORDERED: Iopamidol - 370 500 ML MLS IVP ONE (11:01)
[2021-10-11 11:27] LABS: Adenovirus Not Detected (Not Detect); Bordetella Pertussis Not Detected (Not Detect); Chlamydophila pneumoniae Not Detected (Not Detect); Coronavirus 229E Not Detected (Not Detect); Coronavirus HKU1 Not Detected (Not Detect); Coronavirus NL63 Not Detected (Not Detect); Coronavirus OC43 Not Detected (Not Detect); Human Metapneumovirus Not Detected (Not Detect); Human Rhinovirus/Enterovirus Not Detected (Not Detect); Influenza A Subtype 2009 H1 Not Detected (Not Detect); Influenza B Not Detected (Not Detect); Mycoplasma pneumoniae Not Detected (Not Detect); Parainfluenza Virus 1 Not Detected (Not Detect); Parainfluenza Virus 2 Not Detected (Not Detect); Parainfluenza Virus 3 Not Detected (Not Detect); Parainfluenza Virus 4 Not Detected (Not Detect); Respiratory Syncytial Virus Not Detected (Not Detect); SARS-CoV-2 Not Detected (Not Detect)
[2021-10-11] MEDS ORDERED: Ipratropium/Albuterol Neb 3 ML IH ONE (11:44)
[2021-10-11] MEDS ORDERED: methylPREDNISolone 125 MG/2 ML VIAL IVP ONE (11:45)
[2021-10-11] MEDS ORDERED: Acetaminophen 325 MG TABLET PO PRN (14:03)
[2021-10-11] MEDS ORDERED: Naloxone 0.4 MG/ML INJ IVP PRN (14:03)
[2021-10-11] MEDS ORDERED: Ondansetron 4 MG/2 ML VIAL IVP PRN (14:03)
[2021-10-11] MEDS ORDERED: Dextrose Gel 15 GM/37.5 ML TUBE PO PRN ×2 (14:58)
[2021-10-11] MEDS ORDERED: *HR* Dextrose 50 % in Water (Syg) 50 ML SYRINGE IVP PRN (14:58)
[2021-10-11] MEDS ORDERED: D5% in Water 1,000 ML IVC PRN (14:58)
[2021-10-11] MEDS ORDERED: Ipratropium/Albuterol Neb 3 ML IH PRN (15:10)
[2021-10-11] MEDS: Insulin LISPRO 300 UNITS/3 ML VIAL SUBQ SCH ×2 (16:23→20:54)
[2021-10-11] MEDS: methylPREDNISolone 125 MG/2 ML VIAL IVP SCH (17:39)
[2021-10-11] MEDS ORDERED: Vancomycin 1,500 MG/265 ML IV.SOLN IVPB SCH (23:00)
[2021-10-12] MEDS: Cefepime HCl 2,000 MG in 0.9 % Sodium Chloride 10 ML IVPB SCH ×3 (00:35→20:03)
[2021-10-12] MEDS: methylPREDNISolone 125 MG/2 ML VIAL IVP SCH ×2 (05:31→17:07)
[2021-10-12 05:38] LABS: Basophils % 0.1 %; Hematocrit 33.7 % (35.3-44.9); Hemoglobin 10.7 g/dL (11.5-15.4); Immature Granulocytes % 0.5 % (0-4); Lymphocytes # 1.5 K/mcL (0.6-4.6); Lymphocytes % 11.4 %; Mean Corpuscular HGB Conc 31.8 g/dL (31.6-35.5); Mean Corpuscular Hemoglobin 30.7 pg (28.0-33.3); Mean Corpuscular Volume 96.8 fL (83.0-100.0); Mean Platelet Volume 11.5 fL (9.4-12.4); Monocytes # 0.5 K/mcL (0.0-1.3); Neutrophils # 11.4 K/mcL (1.6-8.9); Platelet Count 194 K/mcL (140-400); Red Blood Count 3.48 M/mcL (3.82-4.97); Red Cell Distribution Width 13.3 % (11.5-14.5); White Blood Count 13.5 K/mcL (4.3-11.1)
[2021-10-12] MEDS ORDERED: *HR* Enoxaparin 30 MG/0.3 ML SYRINGE SQ SCH (06:00)
[2021-10-12 06:03] LABS: BUN/Creatinine Ratio 39 (6-26); Blood Urea Nitrogen 24 mg/dL (8-23); Calcium 8.1 mg/dL (8.6-10.3); Carbon Dioxide 33 mEq/L (23-29); Chloride 94 mEq/L (98-107); Glucose 352 mg/dL (70-105); Magnesium 2.1 mg/dL (1.6-2.6); Osmolality,Calculated 296 (280-300); Potassium 4.6 mEq/L (3.5-5.1); Sodium 134 mEq/L (136-145); eGFR For African Americans > 60 (> 60); eGFR For Non-African Americans > 60 (> 60)
[2021-10-12 06:15] LABS: Thyroid Stimulating Hormone 1.517 mcIU/mL (0.340-5.600)
[2021-10-12] MEDS: Aspirin Enteric Coated 81 MG Tablet PO SCH (09:19)
[2021-10-12] MEDS: Loratadine 10 MG TABLET PO SCH (09:19)
[2021-10-12] MEDS: Insulin LISPRO 300 UNITS/3 ML VIAL SUBQ SCH ×5 (09:19→20:25)
[2021-10-12] MEDS: Metoprolol XL (24 HR) Succ 25 MG TAB.ER.24H PO SCH (09:20)
[2021-10-12] MEDS: Cholecalciferol (D-3) 1,000 UNIT (25MCG) TABLET PO SCH (09:20)
[2021-10-12] MEDS: Furosemide 20 MG TABLET PO SCH ×2 (09:20→20:06)
[2021-10-12] MEDS: Insulin DETEMIR 100 UNIT/ML X5UNITS SUBQ SCH (09:22)
[2021-10-12] MEDS: Budesonide Neb 0.25 MG/2 ML IH SCH (10:50)
[2021-10-12] MEDS ORDERED: Insulin LISPRO 300 UNITS/3 ML VIAL SUBQ SCH (21:00)
[2021-10-12] MEDS ORDERED: Divalproex (24 HR) 500 MG TABLET PO SCH (21:00)
[2021-10-12] MEDS ORDERED: GuaiFENesin/Dextromethorphan TABLET PO SCH (21:00)
[2021-10-12] MEDS ORDERED: cloZAPine 100 MG TABLET PO SCH (21:00)
[2021-10-12] MEDS ORDERED: Vancomycin 1,500 MG/265 ML IV.SOLN IVPB SCH (23:00)
[2021-10-13] MEDS: Cefepime HCl 2,000 MG in 0.9 % Sodium Chloride 10 ML IVPB SCH (05:10)
[2021-10-13 05:53] LABS: Hemoglobin 10.3 g/dL (11.5-15.4); Mean Corpuscular HGB Conc 32.2 g/dL (31.6-35.5); Mean Corpuscular Hemoglobin 30.9 pg (28.0-33.3); Mean Corpuscular Volume 96.1 fL (83.0-100.0); Mean Platelet Volume 12.5 fL (9.4-12.4); Platelet Count 187 K/mcL (140-400); Red Blood Count 3.33 M/mcL (3.82-4.97); Red Cell Distribution Width 13.3 % (11.5-14.5); White Blood Count 14.7 K/mcL (4.3-11.1)
[2021-10-13 05:55] LABS: BUN/Creatinine Ratio 36 (6-26); Blood Urea Nitrogen 23 mg/dL (8-23); Calcium 8.3 mg/dL (8.6-10.3); Carbon Dioxide 34 mEq/L (23-29); Chloride 96 mEq/L (98-107); Glucose 227 mg/dL (70-105); Osmolality,Calculated 293 (280-300); Phosphorous 2.6 mg/dL (2.7-4.5); Potassium 4.7 mEq/L (3.5-5.1); Sodium 136 mEq/L (136-145); eGFR For African Americans > 60 (> 60); eGFR For Non-African Americans > 60 (> 60)
[2021-10-13] MEDS ORDERED: *HR* Enoxaparin 40 MG/0.4 ML SYRINGE SQ SCH (06:00)
[2021-10-13 07:17] LABS: Lymphocytes # 3.5 K/mcL (0.6-4.6); Monocytes # 0.6 K/mcL (0.0-1.3); Neutrophils # 10.6 K/mcL (1.6-8.9)
[2021-10-13 07:18] LABS: Platelet Estimate Normal (Normal)
[2021-10-13] MEDS: Budesonide Neb 0.25 MG/2 ML IH SCH (08:01)
[2021-10-13 08:08] VITALS: PULSE 89
[2021-10-13] MEDS: Insulin LISPRO 300 UNITS/3 ML VIAL SUBQ SCH ×4 (08:36→12:02)
[2021-10-13] MEDS ORDERED: predniSONE 20 MG TABLET PO SCH (09:00)
[2021-10-13] MEDS: Aspirin Enteric Coated 81 MG Tablet PO SCH (09:18)
[2021-10-13] MEDS: Loratadine 10 MG TABLET PO SCH (09:19)
[2021-10-13] MEDS: Metoprolol XL (24 HR) Succ 25 MG TAB.ER.24H PO SCH (09:19)
[2021-10-13] MEDS: Furosemide 20 MG TABLET PO SCH (09:20)
[2021-10-13] MEDS: Insulin DETEMIR 100 UNIT/ML X5UNITS SUBQ SCH (09:20)
[2021-10-13] MEDS: Cholecalciferol (D-3) 1,000 UNIT (25MCG) TABLET PO SCH (09:20)
[2021-10-13] MEDS ORDERED: levoFLOXacin 750 MG TABLET PO SCH (09:45)
[2021-10-13 10:42] VITALS: BP 128/76; TEMP 98.1; O2SAT 93
[2021-10-13 11:03] LABS: Influenza A PCR Negative (Negative); Influenza B PCR Negative (Negative); Resp. Syncytial Virus PCR Negative (Negative)
[2021-10-13 11:11] LABS: SARS-CoV-2 by PCR (In House) Negative (Negative)
== END 2021-10-13 15:01 | DRG 871 ==
LOC: 3ANU 09:53 → EMEROOARM 09:53 → 3ANU 15:45 → SUATTDRO 19:03
PROVIDERS: ADMIT Student in an Organized Health Care Education/Training Program; ATTEND Internal Medicine

== ENCOUNTER 2021-11-27 22:03 | Inpatient (IN) ==
[2021-11-28 01:05] LABS: ABG Base Excess 13 mEq/L (-2 to 3); ABG HCO3 41 mEq/L (21-27); ABG Oxygen Saturation 95 % (95-98); ABG PCO2 75 mmHg (35-45); ABG PH 7.35 pH Units (7.32-7.45); ABG PO2 85 mmHg (85-104); ABG TCO2 44 mEq/L (20-26); Blood Gas Modality BiLevel
[2021-11-28 01:59] LABS: Adenovirus Not Detected (Not Detect); Coronavirus 229E Not Detected (Not Detect); Coronavirus HKU1 Not Detected (Not Detect); Coronavirus NL63 Not Detected (Not Detect); Coronavirus OC43 Not Detected (Not Detect); Human Metapneumovirus Not Detected (Not Detect); SARS-CoV-2 Not Detected (Not Detect)
[2021-11-28 02:00] LABS: Bordetella Pertussis Not Detected (Not Detect); Chlamydophila pneumoniae Not Detected (Not Detect); Human Rhinovirus/Enterovirus Not Detected (Not Detect); Influenza A Subtype 2009 H1 Not Detected (Not Detect); Influenza B Not Detected (Not Detect); Mycoplasma pneumoniae Not Detected (Not Detect); Parainfluenza Virus 1 Not Detected (Not Detect); Parainfluenza Virus 2 Not Detected (Not Detect); Parainfluenza Virus 3 Not Detected (Not Detect); Parainfluenza Virus 4 Not Detected (Not Detect); Respiratory Syncytial Virus Not Detected (Not Detect)
[2021-11-28 02:14] LABS: Basophils % 0.2 %; Hematocrit 29.9 % (35.3-44.9); Hemoglobin 9.4 g/dL (11.5-15.4); Immature Granulocytes % 0.5 % (0-4); Lymphocytes # 1.5 K/mcL (0.6-4.6); Lymphocytes % 11.1 %; Mean Corpuscular HGB Conc 31.4 g/dL (31.6-35.5); Mean Corpuscular Hemoglobin 30.7 pg (28.0-33.3); Mean Corpuscular Volume 97.7 fL (83.0-100.0); Mean Platelet Volume 11.6 fL (9.4-12.4); Monocytes # 0.5 K/mcL (0.0-1.3); Monocytes % 3.4 %; Neutrophils # 11.2 K/mcL (1.6-8.9); Platelet Count 183 K/mcL (140-400); Red Blood Count 3.06 M/mcL (3.82-4.97); Red Cell Distribution Width 13.5 % (11.5-14.5); Segmented Neutrophils % 84.8 %; White Blood Count 13.2 K/mcL (4.3-11.1)
[2021-11-28] MEDS ORDERED: Cefepime HCl 2,000 MG in 0.9 % Sodium Chloride 10 ML IVP ONE (02:31)
[2021-11-28] MEDS ORDERED: Vancomycin 1,750 MG/517.5 ML IV.SOLN IVPB ONE (03:00)
[2021-11-28] MEDS ORDERED: Albuterol 2.5 MG/3 ML NEBULIZER IH ONE (03:08)
[2021-11-28] MEDS ORDERED: Ipratropium/Albuterol Neb 3 ML IH ONE (03:08)
[2021-11-28] MEDS ORDERED: methylPREDNISolone 125 MG/2 ML VIAL IVP ONE (03:08)
[2021-11-28 03:15] LABS: Alanine Aminotransferase 10 Units/L (7-52); Albumin 3.5 g/dL (3.5-5.7); Albumin/Globulin Ratio 1.5 (1.1-2.2); Alkaline Phosphatase 47 Units/L (34-104); Aspartate Amino Transferase 12 Units/L (13-39); BUN/Creatinine Ratio 35 (6-26); Bilirubin,Total 0.3 mg/dL (0.3-1.0); Blood Urea Nitrogen 26 mg/dL (8-23); Calcium 8.9 mg/dL (8.6-10.3); Carbon Dioxide 39 mEq/L (23-29); Chloride 90 mEq/L (98-107); Globulin 2.4 g/dL (2.4-3.5); Glucose 201 mg/dL (70-105); Osmolality,Calculated 292 (280-300); Potassium 4.1 mEq/L (3.5-5.1); Sodium 136 mEq/L (136-145); Total Protein 5.9 g/dL (6.4-8.9); Troponin I < 0.03 ng/mL (< 0.04)
[2021-11-28] MEDS ORDERED: Naloxone 0.4 MG/ML INJ IVP PRN (03:56)
[2021-11-28] MEDS ORDERED: Ondansetron 4 MG/2 ML VIAL IVP PRN (04:00)
[2021-11-28] MEDS ORDERED: D5% in Water 1,000 ML IVC PRN (04:23)
[2021-11-28] MEDS ORDERED: Dextrose Gel 15 GM/37.5 ML TUBE PO PRN ×2 (04:23)
[2021-11-28] MEDS ORDERED: *HR* Dextrose 50 % in Water (Syg) 50 ML SYRINGE IVP PRN (04:23)
[2021-11-28] MEDS: Ipratropium/Albuterol Neb 3 ML IH SCH ×6 (04:31→23:10)
[2021-11-28] MEDS ORDERED: MethylPREDNISolone 40 MG/ML VIAL IVP SCH (06:00)
[2021-11-28] MEDS: *HR* Heparin 5,000 UNIT/ML VIAL SQ SCH ×3 (07:01→20:51)
[2021-11-28] MEDS: Azithromycin 500 MG in 0.9 % Sodium Chloride 250 ML IVPB SCH (08:13)
[2021-11-28] MEDS: Insulin LISPRO 300 UNITS/3 ML VIAL SUBQ SCH ×4 (08:15→22:37)
[2021-11-28 09:24] LABS: Hematocrit 31.9 % (35.3-44.9); Mean Corpuscular HGB Conc 31.3 g/dL (31.6-35.5); Mean Corpuscular Hemoglobin 30.3 pg (28.0-33.3); Mean Corpuscular Volume 96.7 fL (83.0-100.0); Mean Platelet Volume 11.8 fL (9.4-12.4); Platelet Count 193 K/mcL (140-400); Red Cell Distribution Width 13.4 % (11.5-14.5); White Blood Count 13.1 K/mcL (4.3-11.1)
[2021-11-28 09:42] LABS: BUN/Creatinine Ratio 39 (6-26); Blood Urea Nitrogen 24 mg/dL (8-23); Calcium 8.9 mg/dL (8.6-10.3); Carbon Dioxide 36 mEq/L (23-29); Chloride 91 mEq/L (98-107); Glucose 228 mg/dL (70-105); Osmolality,Calculated 291 (280-300); Sodium 135 mEq/L (136-145)
[2021-11-28 11:38] LABS: ABG Base Excess 12 mEq/L (-2 to 3); ABG HCO3 39 mEq/L (21-27); ABG Oxygen Saturation 93 % (95-98); ABG PCO2 59 mmHg (35-45); ABG PH 7.43 pH Units (7.32-7.45); ABG PO2 68 mmHg (85-104); ABG TCO2 40 mEq/L (20-26); Blood Gas Modality AVAPS; Blood Gas VT 500 cc
[2021-11-28] MEDS: Cefepime HCl 2,000 MG in 0.9 % Sodium Chloride Mini Bag 100 ML IVPB SCH ×2 (12:24→20:51)
[2021-11-28] MEDS ORDERED: Vancomycin 1,500 MG/265 ML IV.SOLN IVPB SCH (15:00)
[2021-11-28] MEDS ORDERED: Acetaminophen 325 MG TABLET PO PRN (18:12)
[2021-11-28] MEDS ORDERED: Insulin LISPRO 300 UNITS/3 ML VIAL SUBQ ONE (18:17)
[2021-11-28] MEDS: Metoprolol XL (24 HR) Succ 50 MG TAB.ER.24H PO SCH (18:31)
[2021-11-28] MEDS: Insulin DETEMIR 100 UNIT/ML X5UNITS SUBQ SCH (20:50)
[2021-11-28] MEDS: Furosemide 40 MG TABLET PO SCH (22:41)
[2021-11-28] MEDS: Divalproex (24 HR) 500 MG TABLET PO SCH (22:42)
[2021-11-29] MEDS: Ipratropium/Albuterol Neb 3 ML IH SCH ×6 (04:08→23:22)
[2021-11-29] MEDS: *HR* Heparin 5,000 UNIT/ML VIAL SQ SCH ×3 (05:06→20:57)
[2021-11-29] MEDS: MethylPREDNISolone 40 MG/ML VIAL IVP SCH ×2 (05:08→18:10)
[2021-11-29] MEDS: Cefepime HCl 2,000 MG in 0.9 % Sodium Chloride Mini Bag 100 ML IVPB SCH ×3 (05:09→20:56)
[2021-11-29] MEDS: Loratadine 10 MG TABLET PO SCH (09:04)
[2021-11-29] MEDS: Furosemide 40 MG TABLET PO SCH ×2 (09:04→18:10)
[2021-11-29] MEDS: Metoprolol XL (24 HR) Succ 50 MG TAB.ER.24H PO SCH (09:04)
[2021-11-29] MEDS: Aspirin Enteric Coated 81 MG Tablet PO SCH (09:04)
[2021-11-29] MEDS: Insulin LISPRO 300 UNITS/3 ML VIAL SUBQ SCH ×4 (09:05→21:05)
[2021-11-29] MEDS: Azithromycin 500 MG in 0.9 % Sodium Chloride 250 ML IVPB SCH (11:04)
[2021-11-29 15:32] LABS: Basophils % 0.2 %; Hematocrit 30.2 % (35.3-44.9); Hemoglobin 9.5 g/dL (11.5-15.4); Immature Granulocytes % 1.3 % (0-4); Lymphocytes # 1.8 K/mcL (0.6-4.6); Mean Corpuscular HGB Conc 31.5 g/dL (31.6-35.5); Mean Corpuscular Hemoglobin 30.8 pg (28.0-33.3); Mean Corpuscular Volume 98.1 fL (83.0-100.0); Monocytes # 1.3 K/mcL (0.0-1.3); Monocytes % 9.9 %; Neutrophils # 10.3 K/mcL (1.6-8.9); Platelet Count 196 K/mcL (140-400); Red Blood Count 3.08 M/mcL (3.82-4.97); Red Cell Distribution Width 13.5 % (11.5-14.5); Segmented Neutrophils % 75.6 %; White Blood Count 13.6 K/mcL (4.3-11.1)
[2021-11-29 15:47] LABS: Calcium 8.2 mg/dL (8.6-10.3); Magnesium 1.6 mg/dL (1.6-2.6); Potassium 3.6 mEq/L (3.5-5.1)
[2021-11-29] MEDS: Insulin DETEMIR 100 UNIT/ML X5UNITS SUBQ SCH (20:57)
[2021-11-29] MEDS: Divalproex (24 HR) 500 MG TABLET PO SCH (21:02)
[2021-11-30] MEDS: Ipratropium/Albuterol Neb 3 ML IH SCH ×6 (04:07→23:52)
[2021-11-30] MEDS: Cefepime HCl 2,000 MG in 0.9 % Sodium Chloride Mini Bag 100 ML IVPB SCH ×3 (04:53→21:02)
[2021-11-30] MEDS: MethylPREDNISolone 40 MG/ML VIAL IVP SCH (05:00)
[2021-11-30] MEDS: *HR* Heparin 5,000 UNIT/ML VIAL SQ SCH ×3 (05:00→21:02)
[2021-11-30] MEDS: Azithromycin 500 MG in 0.9 % Sodium Chloride 250 ML IVPB SCH (06:57)
[2021-11-30] MEDS: Insulin LISPRO 300 UNITS/3 ML VIAL SUBQ SCH ×4 (08:16→21:17)
[2021-11-30] MEDS: Furosemide 40 MG TABLET PO SCH ×2 (08:20→16:15)
[2021-11-30] MEDS: Aspirin Enteric Coated 81 MG Tablet PO SCH (08:20)
[2021-11-30] MEDS: Loratadine 10 MG TABLET PO SCH (08:20)
[2021-11-30] MEDS: Metoprolol XL (24 HR) Succ 50 MG TAB.ER.24H PO SCH (08:20)
[2021-11-30 09:31] LABS: BUN/Creatinine Ratio 36 (6-26); Blood Urea Nitrogen 25 mg/dL (8-23); Calcium 8.7 mg/dL (8.6-10.3); Carbon Dioxide 35 mEq/L (23-29); Chloride 89 mEq/L (98-107); Glucose 293 mg/dL (70-105); Osmolality,Calculated 291 (280-300); Potassium 4.1 mEq/L (3.5-5.1); Sodium 133 mEq/L (136-145)
[2021-11-30 12:18] LABS: Basophils % 0.2 %; Hematocrit 32.7 % (35.3-44.9); Hemoglobin 10.3 g/dL (11.5-15.4); Immature Granulocytes % 1.5 % (0-4); Lymphocytes # 1.8 K/mcL (0.6-4.6); Lymphocytes % 15.4 %; Mean Corpuscular HGB Conc 31.5 g/dL (31.6-35.5); Mean Corpuscular Hemoglobin 30.5 pg (28.0-33.3); Mean Corpuscular Volume 96.7 fL (83.0-100.0); Mean Platelet Volume 13.5 fL (9.4-12.4); Monocytes # 0.8 K/mcL (0.0-1.3); Monocytes % 6.4 %; Neutrophils # 9.1 K/mcL (1.6-8.9); Platelet Count 165 K/mcL (140-400); Red Blood Count 3.38 M/mcL (3.82-4.97); Red Cell Distribution Width 13.2 % (11.5-14.5); Segmented Neutrophils % 76.5 %; White Blood Count 11.9 K/mcL (4.3-11.1)
[2021-11-30] MEDS ORDERED: Insulin LISPRO 300 UNITS/3 ML VIAL SUBQ ONE (13:40)
[2021-11-30] MEDS ORDERED: Insulin DETEMIR 100 UNIT/ML X5UNITS SUBQ SCH (21:00)
[2021-11-30] MEDS: Divalproex (24 HR) 500 MG TABLET PO SCH (21:02)
[2021-11-30] MEDS: Insulin DETEMIR 100 UNIT/ML X5UNITS SUBQ SCH (21:16)
[2021-12-01 03:43] LABS: Basophils % 0.3 %; Eosinophils # 0.1 K/mcL (0.0-0.6); Eosinophils % 1.2 %; Hematocrit 32.9 % (35.3-44.9); Hemoglobin 10.4 g/dL (11.5-15.4); Immature Granulocytes % 1.2 % (0-4); Lymphocytes # 3.8 K/mcL (0.6-4.6); Lymphocytes % 31.7 %; Mean Corpuscular HGB Conc 31.6 g/dL (31.6-35.5); Mean Corpuscular Hemoglobin 30.5 pg (28.0-33.3); Mean Corpuscular Volume 96.5 fL (83.0-100.0); Mean Platelet Volume 11.8 fL (9.4-12.4); Monocytes # 1.7 K/mcL (0.0-1.3); Monocytes % 13.8 %; Neutrophils # 6.3 K/mcL (1.6-8.9); Platelet Count 205 K/mcL (140-400); Red Blood Count 3.41 M/mcL (3.82-4.97); Red Cell Distribution Width 13.2 % (11.5-14.5); Segmented Neutrophils % 51.8 %; White Blood Count 12.1 K/mcL (4.3-11.1)
[2021-12-01 04:26] LABS: BUN/Creatinine Ratio 35 (6-26); Blood Urea Nitrogen 22 mg/dL (8-23); Carbon Dioxide 37 mEq/L (23-29); Chloride 91 mEq/L (98-107); Glucose 163 mg/dL (70-105); Osmolality,Calculated 287 (280-300); Potassium 3.4 mEq/L (3.5-5.1); Sodium 135 mEq/L (136-145)
[2021-12-01] MEDS: Ipratropium/Albuterol Neb 3 ML IH SCH ×6 (04:52→23:00)
[2021-12-01] MEDS: *HR* Heparin 5,000 UNIT/ML VIAL SQ SCH ×3 (04:59→20:51)
[2021-12-01] MEDS: Cefepime HCl 2,000 MG in 0.9 % Sodium Chloride Mini Bag 100 ML IVPB SCH ×2 (04:59→18:39)
[2021-12-01] MEDS: Insulin LISPRO 300 UNITS/3 ML VIAL SUBQ SCH ×4 (08:30→20:53)
[2021-12-01] MEDS: Aspirin Enteric Coated 81 MG Tablet PO SCH (08:31)
[2021-12-01] MEDS: Azithromycin 500 MG in 0.9 % Sodium Chloride 250 ML IVPB SCH (08:31)
[2021-12-01] MEDS: Furosemide 40 MG TABLET PO SCH ×2 (08:31→18:39)
[2021-12-01] MEDS: Metoprolol XL (24 HR) Succ 50 MG TAB.ER.24H PO SCH (08:31)
[2021-12-01] MEDS: predniSONE 20 MG TABLET PO SCH (08:31)
[2021-12-01] MEDS: Loratadine 10 MG TABLET PO SCH (08:31)
[2021-12-01] MEDS ORDERED: Ipratropium/Albuterol Neb 3 ML ONE (20:20)
[2021-12-01] MEDS: Divalproex (24 HR) 500 MG TABLET PO SCH (20:51)
[2021-12-01] MEDS: Insulin DETEMIR 100 UNIT/ML X5UNITS SUBQ SCH (20:54)
[2021-12-02] MEDS: Cefepime HCl 2,000 MG in 0.9 % Sodium Chloride Mini Bag 100 ML IVPB SCH ×3 (01:15→17:34)
[2021-12-02] MEDS: Ipratropium/Albuterol Neb 3 ML IH SCH ×6 (04:32→23:05)
[2021-12-02] MEDS: *HR* Heparin 5,000 UNIT/ML VIAL SQ SCH ×3 (05:33→20:21)
[2021-12-02] MEDS: Metoprolol XL (24 HR) Succ 50 MG TAB.ER.24H PO SCH (08:25)
[2021-12-02] MEDS: Azithromycin 500 MG in 0.9 % Sodium Chloride 250 ML IVPB SCH (08:25)
[2021-12-02] MEDS: Furosemide 40 MG TABLET PO SCH ×2 (08:25→17:35)
[2021-12-02] MEDS: Loratadine 10 MG TABLET PO SCH (08:25)
[2021-12-02] MEDS: predniSONE 20 MG TABLET PO SCH (08:25)
[2021-12-02] MEDS: Aspirin Enteric Coated 81 MG Tablet PO SCH (08:25)
[2021-12-02] MEDS: Insulin LISPRO 300 UNITS/3 ML VIAL SUBQ SCH ×4 (08:36→20:22)
[2021-12-02 09:08] LABS: Hematocrit 33.5 % (35.3-44.9); Hemoglobin 10.4 g/dL (11.5-15.4); Mean Corpuscular Hemoglobin 30.3 pg (28.0-33.3); Mean Corpuscular Volume 97.7 fL (83.0-100.0); Mean Platelet Volume 11.4 fL (9.4-12.4); Platelet Count 201 K/mcL (140-400); Red Blood Count 3.43 M/mcL (3.82-4.97); Red Cell Distribution Width 13.5 % (11.5-14.5); White Blood Count 10.7 K/mcL (4.3-11.1)
[2021-12-02 09:29] LABS: BUN/Creatinine Ratio 33 (6-26); Blood Urea Nitrogen 19 mg/dL (8-23); Calcium 9.6 mg/dL (8.6-10.3); Carbon Dioxide 38 mEq/L (23-29); Chloride 92 mEq/L (98-107); Glucose 218 mg/dL (70-105); Osmolality,Calculated 291 (280-300); Potassium 3.5 mEq/L (3.5-5.1); Sodium 136 mEq/L (136-145)
[2021-12-02] MEDS: Divalproex (24 HR) 500 MG TABLET PO SCH (20:20)
[2021-12-02] MEDS: Insulin DETEMIR 100 UNIT/ML X5UNITS SUBQ SCH (20:21)
[2021-12-03] MEDS: Cefepime HCl 2,000 MG in 0.9 % Sodium Chloride Mini Bag 100 ML IVPB SCH ×3 (01:19→17:11)
[2021-12-03] MEDS: Ipratropium/Albuterol Neb 3 ML IH SCH ×6 (04:06→23:04)
[2021-12-03] MEDS: *HR* Heparin 5,000 UNIT/ML VIAL SQ SCH ×3 (05:47→20:01)
[2021-12-03] MEDS: Azithromycin 500 MG in 0.9 % Sodium Chloride 250 ML IVPB SCH (05:53)
[2021-12-03] MEDS: Insulin LISPRO 300 UNITS/3 ML VIAL SUBQ SCH ×4 (07:40→20:00)
[2021-12-03] MEDS: Furosemide 40 MG TABLET PO SCH ×2 (08:27→17:10)
[2021-12-03] MEDS: predniSONE 20 MG TABLET PO SCH (08:27)
[2021-12-03] MEDS: Loratadine 10 MG TABLET PO SCH (08:27)
[2021-12-03] MEDS: Metoprolol XL (24 HR) Succ 50 MG TAB.ER.24H PO SCH (08:27)
[2021-12-03] MEDS: Aspirin Enteric Coated 81 MG Tablet PO SCH (08:27)
[2021-12-03 12:50] LABS: Adenovirus Not Detected (Not Detect); Bordetella Pertussis Not Detected (Not Detect); Chlamydophila pneumoniae Not Detected (Not Detect); Coronavirus 229E Not Detected (Not Detect); Coronavirus HKU1 Not Detected (Not Detect); Coronavirus NL63 Not Detected (Not Detect); Coronavirus OC43 Not Detected (Not Detect); Human Metapneumovirus Not Detected (Not Detect); Human Rhinovirus/Enterovirus Not Detected (Not Detect); Influenza A Subtype 2009 H1 Not Detected (Not Detect); Influenza B Not Detected (Not Detect); Mycoplasma pneumoniae Not Detected (Not Detect); Parainfluenza Virus 1 Not Detected (Not Detect); Parainfluenza Virus 2 Not Detected (Not Detect); Parainfluenza Virus 3 Not Detected (Not Detect); Parainfluenza Virus 4 Not Detected (Not Detect); Respiratory Syncytial Virus Not Detected (Not Detect); SARS-CoV-2 Not Detected (Not Detect)
[2021-12-03] MEDS: Insulin DETEMIR 100 UNIT/ML X5UNITS SUBQ SCH (20:00)
[2021-12-03] MEDS: Divalproex (24 HR) 500 MG TABLET PO SCH (20:01)
[2021-12-04] MEDS: Cefepime HCl 2,000 MG in 0.9 % Sodium Chloride Mini Bag 100 ML IVPB SCH (02:34)
[2021-12-04] MEDS: Ipratropium/Albuterol Neb 3 ML IH SCH ×2 (04:32→07:24)
[2021-12-04] MEDS: *HR* Heparin 5,000 UNIT/ML VIAL SQ SCH (06:03)
[2021-12-04 07:36] VITALS: BP 166/73; PULSE 74; TEMP 96.1; O2SAT 97
== END 2021-12-04 08:30 | DRG 871 ==
LOC: 3NENU 22:03 → EMEROOARM 22:03 → SUATTDRO 11-28 03:13 → 3NENU 11-28 03:52 → SUATTDRO 11-28 15:31
PROVIDERS: ADMIT Internal Medicine; ATTEND Hospitalist

== ENCOUNTER 2021-12-28 09:39 | Observation (INO) ==
[2021-12-28 10:36] LABS: Basophils % 0.3 %; Eosinophils # 0.1 K/mcL (0.0-0.6); Eosinophils % 1.6 %; Hematocrit 31.6 % (35.3-44.9); Hemoglobin 9.7 g/dL (11.5-15.4); Immature Granulocytes % 0.5 % (0-4); Lymphocytes # 1.5 K/mcL (0.6-4.6); Lymphocytes % 17.6 %; Mean Corpuscular HGB Conc 30.7 g/dL (31.6-35.5); Mean Corpuscular Hemoglobin 30.8 pg (28.0-33.3); Mean Corpuscular Volume 100.3 fL (83.0-100.0); Mean Platelet Volume 10.9 fL (9.4-12.4); Monocytes # 1.1 K/mcL (0.0-1.3); Monocytes % 12.9 %; Neutrophils # 5.8 K/mcL (1.6-8.9); Platelet Count 212 K/mcL (140-400); Red Blood Count 3.15 M/mcL (3.82-4.97); Red Cell Distribution Width 13.5 % (11.5-14.5); Segmented Neutrophils % 67.1 %; White Blood Count 8.6 K/mcL (4.3-11.1)
[2021-12-28 10:37] LABS: ABG Base Excess 13 mEq/L (-2 to 3); ABG HCO3 40 mEq/L (21-27); ABG Oxygen Saturation 90 % (95-98); ABG PCO2 70 mmHg (35-45); ABG PH 7.37 pH Units (7.32-7.45); ABG PO2 63 mmHg (85-104); ABG TCO2 42 mEq/L (20-26)
[2021-12-28 11:21] LABS: Alanine Aminotransferase 10 Units/L (7-52); Albumin 3.7 g/dL (3.5-5.7); Albumin/Globulin Ratio 1.6 (1.1-2.2); Alkaline Phosphatase 58 Units/L (34-104); Aspartate Amino Transferase 15 Units/L (13-39); BUN/Creatinine Ratio 25 (6-26); Bilirubin,Direct 0.1 mg/dL (0.0-0.2); Bilirubin,Indirect 0.1 mg/dL (0.0-1.0); Bilirubin,Total 0.2 mg/dL (0.3-1.0); Blood Urea Nitrogen 14 mg/dL (8-23); Calcium 9.4 mg/dL (8.6-10.3); Carbon Dioxide 36 mEq/L (23-29); Chloride 95 mEq/L (98-107); Globulin 2.3 g/dL (2.4-3.5); Glucose 237 mg/dL (70-105); Osmolality,Calculated 298 (280-300); Potassium 4.2 mEq/L (3.5-5.1); Sodium 140 mEq/L (136-145); Troponin I < 0.03 ng/mL (< 0.04)
[2021-12-28 11:32] LABS: Influenza A PCR Negative (Negative); Influenza B PCR Negative (Negative); Resp. Syncytial Virus PCR Negative (Negative); SARS-CoV-2 by PCR (In House) Negative (Negative)
[2021-12-28 12:38] LABS: INR 0.9; Prothrombin Time 10.5 Seconds (9.4-12.1)
[2021-12-28 12:40] LABS: Activated Partial Thrombo Time 30.5 Seconds (26.0-36.0)
[2021-12-28] MEDS ORDERED: Iopamidol - 370 500 ML MLS IVP ONE (13:41)
[2021-12-28 16:52] LABS: ABG Base Excess 13 mEq/L (-2 to 3); ABG HCO3 41 mEq/L (21-27); ABG Oxygen Saturation 88 % (95-98); ABG PCO2 74 mmHg (35-45); ABG PH 7.36 pH Units (7.32-7.45); ABG PO2 61 mmHg (85-104); ABG TCO2 44 mEq/L (20-26)
[2021-12-28] MEDS ORDERED: Naloxone 0.4 MG/ML INJ IVP PRN (17:06)
[2021-12-28] MEDS ORDERED: Melatonin 3 MG TABLET PO PRN (17:06)
[2021-12-28] MEDS ORDERED: *HR* Dextrose 50 % in Water (Syg) 50 ML SYRINGE IVP PRN (17:11)
[2021-12-28] MEDS ORDERED: D5% in Water 1,000 ML IVC PRN (17:11)
[2021-12-28] MEDS ORDERED: Dextrose Gel 15 GM/37.5 ML TUBE PO PRN ×2 (17:11)
[2021-12-28 17:40] LABS: Adenovirus Not Detected (Not Detect); Bordetella Pertussis Not Detected (Not Detect); Chlamydophila pneumoniae Not Detected (Not Detect); Coronavirus 229E Not Detected (Not Detect); Coronavirus HKU1 Not Detected (Not Detect); Coronavirus NL63 Not Detected (Not Detect); Coronavirus OC43 Not Detected (Not Detect); Human Metapneumovirus Not Detected (Not Detect); Human Rhinovirus/Enterovirus Not Detected (Not Detect); Influenza A Subtype 2009 H1 Not Detected (Not Detect); Influenza B Not Detected (Not Detect); Mycoplasma pneumoniae Not Detected (Not Detect); Parainfluenza Virus 1 Not Detected (Not Detect); Parainfluenza Virus 2 Not Detected (Not Detect); Parainfluenza Virus 3 Not Detected (Not Detect); Parainfluenza Virus 4 Not Detected (Not Detect); Respiratory Syncytial Virus Not Detected (Not Detect); SARS-CoV-2 Not Detected (Not Detect)
[2021-12-28] MEDS ORDERED: Insulin LISPRO 300 UNITS/3 ML VIAL SUBQ SCH (21:00)
[2021-12-28] MEDS: MethylPREDNISolone 40 MG/ML VIAL IVP SCH (23:24)
[2021-12-29] MEDS: *HR* Enoxaparin 40 MG/0.4 ML SYRINGE SQ SCH (05:06)
[2021-12-29 06:15] LABS: Hematocrit 30.8 % (35.3-44.9); Hemoglobin 9.7 g/dL (11.5-15.4); Mean Corpuscular HGB Conc 31.5 g/dL (31.6-35.5); Mean Corpuscular Hemoglobin 30.4 pg (28.0-33.3); Mean Corpuscular Volume 96.6 fL (83.0-100.0); Mean Platelet Volume 11.9 fL (9.4-12.4); Platelet Count 193 K/mcL (140-400); Red Blood Count 3.19 M/mcL (3.82-4.97); Red Cell Distribution Width 13.2 % (11.5-14.5); White Blood Count 8.2 K/mcL (4.3-11.1)
[2021-12-29 06:28] LABS: BUN/Creatinine Ratio 25 (6-26); Blood Urea Nitrogen 13 mg/dL (8-23); Calcium 9.5 mg/dL (8.6-10.3); Carbon Dioxide 36 mEq/L (23-29); Chloride 97 mEq/L (98-107); Glucose 303 mg/dL (70-105); Magnesium 1.8 mg/dL (1.6-2.6); Osmolality,Calculated 295 (280-300); Sodium 137 mEq/L (136-145)
[2021-12-29] MEDS: MethylPREDNISolone 40 MG/ML VIAL IVP SCH ×2 (08:18→16:31)
[2021-12-29] MEDS: Insulin LISPRO 300 UNITS/3 ML VIAL SUBQ SCH ×3 (08:20→16:31)
[2021-12-29 08:43] LABS: VBG HCO3 33 mEq/L (21-27); VBG PCO2 56 mmHg (41-51); VBG PH 7.38 pH Units (7.32-7.42); VBG PO2 198 mmHg (25-50)
[2021-12-29] MEDS: Azithromycin 250 MG TABLET PO SCH (12:56)
[2021-12-29] MEDS ORDERED: Insulin LISPRO 300 UNITS/3 ML VIAL SUBQ SCH (14:05)
[2021-12-29] MEDS: Levalbuterol Neb 0.63 MG/3 ML IH SCH ×2 (15:36→21:55)
[2021-12-29] MEDS: Ipratropium Neb 0.5 MG NEBULIZER IH SCH ×2 (15:36→21:55)
[2021-12-29] MEDS: Metoprolol XL (24 HR) Succ 25 MG TAB.ER.24H PO SCH (16:31)
[2021-12-29] MEDS: Insulin DETEMIR 100 UNIT/ML X5UNITS SUBQ SCH (20:50)
[2021-12-29] MEDS ORDERED: Divalproex (24 HR) 500 MG TABLET PO SCH (21:00)
[2021-12-29] MEDS ORDERED: cloZAPine 100 MG TABLET PO SCH (21:00)
[2021-12-29] MEDS: Budesonide/Formoterol 160/4.5 1 PUFF INH IH SCH (21:59)
[2021-12-30] MEDS: MethylPREDNISolone 40 MG/ML VIAL IVP SCH ×3 (00:18→08:15)
[2021-12-30 03:58] LABS: Hematocrit 29.4 % (35.3-44.9); Mean Corpuscular HGB Conc 31.6 g/dL (31.6-35.5); Mean Corpuscular Hemoglobin 30.2 pg (28.0-33.3); Mean Corpuscular Volume 95.5 fL (83.0-100.0); Platelet Count 231 K/mcL (140-400); Red Blood Count 3.08 M/mcL (3.82-4.97); Red Cell Distribution Width 13.1 % (11.5-14.5)
[2021-12-30 04:00] LABS: Hemoglobin 9.3 g/dL (11.5-15.4); White Blood Count 10.6 K/mcL (4.3-11.1)
[2021-12-30 04:08] LABS: BUN/Creatinine Ratio 30 (6-26); Blood Urea Nitrogen 17 mg/dL (8-23); Calcium 9.3 mg/dL (8.6-10.3); Carbon Dioxide 32 mEq/L (23-29); Chloride 92 mEq/L (98-107); Glucose 354 mg/dL (70-105); Osmolality,Calculated 286 (280-300); Potassium 4.1 mEq/L (3.5-5.1); Sodium 130 mEq/L (136-145)
[2021-12-30] MEDS: Levalbuterol Neb 0.63 MG/3 ML IH SCH ×2 (04:08→10:39)
[2021-12-30] MEDS: Ipratropium Neb 0.5 MG NEBULIZER IH SCH ×2 (04:08→10:39)
[2021-12-30 04:43] LABS: Estimated Average Glucose 197 mg/dl; Hemoglobin A1C 8.5 %
[2021-12-30] MEDS: *HR* Enoxaparin 40 MG/0.4 ML SYRINGE SQ SCH (06:13)
[2021-12-30 07:51] VITALS: BP 165/76; PULSE 88; TEMP 97.6
[2021-12-30] MEDS: Metoprolol XL (24 HR) Succ 25 MG TAB.ER.24H PO SCH (08:14)
[2021-12-30] MEDS: Azithromycin 250 MG TABLET PO SCH (08:15)
[2021-12-30] MEDS: Insulin LISPRO 300 UNITS/3 ML VIAL SUBQ SCH (08:16)
[2021-12-30] MEDS: Insulin DETEMIR 100 UNIT/ML X5UNITS SUBQ SCH (08:27)
[2021-12-30] MEDS ORDERED: Aspirin Enteric Coated 81 MG Tablet PO SCH (09:00)
[2021-12-30] MEDS: Budesonide/Formoterol 160/4.5 1 PUFF INH IH SCH (10:38)
[2021-12-30 10:42] VITALS: O2SAT 90
== END 2021-12-30 11:49 ==
LOC: 2NENU 09:39 → EMEROOARM 09:39 → 2NENU 18:21
PROVIDERS: ADMIT Hospitalist; ATTEND Hospitalist